=== PATIENT | female | born 1975 | race Caucasian/White ===

== ENCOUNTER 2016-11-09 11:44 | Emergency (ER) | payer MEDICARE ==
[2016-11-09] MEDS ORDERED: IPRATROPIUM/ALBUTEROL 0.5-2.5 MG/3 ML AMPUL NEB ONE (12:33)
--- NOTE | 2016-11-09 12:39 | ER Document Report ---
ED Respiratory Problem - General Chief Complaint: Chest Congestion Stated Complaint: COUGH Time Seen by Provider: 11/09/16 12:22 Mode of Arrival: Ambulatory Information source: Patient Notes: 41-year-old female presents to ED for cough congestion fever and body aches on and off. She states she has had a headache hard to breathe and panic attacks. She has a history of chronic cough. She states she had a temperature of 101.7 this morning but did not take any Tylenol or Motrin as she is allergic to them and in the ED her temp was 98.9. She states she [facility] got [facility] yesterday. She states she has had a history of bronchitis and pneumonia. TRAVEL OUTSIDE OF THE [place] IN LAST 30 DAYS: No - HPI Patient complains to provider of: Cough, Short of breath Onset: Other - Started Thursday evening Initiating Event: URI Quality of pain: Achy Severity: Moderate Pain Level: 3 Context: Smoker - 4 cigarettes Short of Breath: Mild Cough: Nonproductive Sputum amount: None Associated symptoms: Congestion, Cough, Fever, PND, Runny nose, Sinus pain/ pressure, Sore Throat Similar symptoms previously: Yes Recently seen / treated by doctor: No - Related Data Allergies/Adverse Reactions: aspirin [Aspirin] Allergy (Verified 11/09/16 12:08) codeine [Codeine] Allergy (Verified 11/09/16 12:08) NSAIDS (Non-Steroidal Anti-Inflamma [Nsaids] Allergy (Verified 11/09/16 12:08) Penicillins Allergy (Verified 11/09/16 12:08) Past Medical History - General Information source: Patient - Social History Smoking Status: Current Every Day Smoker Cigarette use (# per day): Yes - 4 cigarettes a day Chew tobacco use (# tins/day): No Smoking Education Provided: Yes - Less than 2 minutes Frequency of alcohol use: None Drug Abuse: None Occupation: Disability Lives with: Family Family History: COPD, Hyperlipidemia, Hypertension, Malignancy, Thyroid Disfunction Patient has suicidal ideation: No Patient has homicidal ideation: No Pulmonary Medical History: Reports: Hx Bronchitis, Hx Pneumonia EENT Medical History: Reports: None Neurological Medical History: Reports: None Endocrine Medical History: Reports: None Renal/ Medical History: Reports: None Malignancy Medical History: Reports: None GI Medical History: Reports: Hx Gastroesophageal Reflux Disease, Hx Irritable Bowel, Hx Colonoscopy, Hx Endoscopy Musculoskeltal Medical History: Reports Hx Arthritis, Reports Hx Fibromyalgia, Reports Hx Musculoskeletal Deformity Skin Medical History: Reports None Psychiatric Medical History: Reports: Hx Anxiety, Hx Attention Deficit Hyperactivity Disorder, Hx Bipolar Disorder Past Surgical History: Reports: Hx Neurologic Surgery - Plates and 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- 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, Hx Tubal Ligation - Immunizations Immunizations up to date: Yes Review of Systems - Review of Systems Constitutional: Fever, Recent illness EENT: Nose discharge, Sinus discharge, Throat pain Cardiovascular: No symptoms reported Respiratory: Cough Gastrointestinal: No symptoms reported Genitourinary: No symptoms reported Female Genitourinary: No symptoms reported Musculoskeletal: No symptoms reported Skin: No symptoms reported Hematologic/Lymphatic: No symptoms reported Neurological/Psychological: Anxiety, Headaches -: Yes All other systems reviewed and negative Physical Exam - Vital signs Vitals: Temp Pulse Resp BP Pulse Ox 98.9 F 89 16 110/74 93 11/09/16 12:04 11/09/16 12:04 11/09/16 12:04 11/09/16 12:04 11/09/16 12:04 Interpretation: Normal - General General appearance: Appears well, Alert - HEENT Head: Normocephalic, Atraumatic Eyes: Normal Pupils: PERRL Ears: Normal External canal: Normal Tympanic membrane: Normal Sinus: Normal Nasal: Purulent discharge, Swelling Mouth/Lips: Normal, Lesions Pharynx: Post nasal drainage. No: Erythema, Exudate, Peritonsillar abscess, Retropharyngeal abscess, Tonsillar hypertrophy, Uvular edema, Potential airway comprom. Neck: Normal - Respiratory Respiratory status: No respiratory distress Chest status: Nontender Breath sounds: Nonproductive cough Chest palpation: Normal - Cardiovascular Rhythm: Regular Heart sounds: Normal auscultation Murmur: No - Abdominal Inspection: Normal Distension: No distension Bowel sounds: Normal Tenderness: Nontender Organomegaly: No organomegaly - Back Back: Normal, Nontender - Extremities General upper extremity: Normal inspection, Nontender, Normal color, Normal ROM , Normal temperature General lower extremity: Normal inspection, Nontender, Normal color, Normal ROM , Normal temperature, Normal weight bearing. No: Tressa's sign - Neurological Neuro grossly intact: Yes Cognition: Normal Orientation: AAOx4 Micky Coma Scale Eye Opening: Spontaneous Micky Coma Scale Verbal: Oriented [place] Coma Scale Motor: Obeys Commands [place] Coma Scale Total: 15 Speech: Normal Cranial nerves: Normal Cerebellar coordination: Normal Motor strength normal: LUE, RUE, LLE, RLE Additional motor exam normals: Equal interactive media director Babinski reflex: Normal (flexor plantar) Sensory: Normal - Psychological Associated symptoms: Normal affect, Normal mood - Skin Skin Temperature: Warm Skin Moisture: Dry Skin Color: Normal Course - Re-evaluation Re-evalutation: 11/09/16 14:17 Discussed date x-ray with patient and family. Written report given to patient to follow-up with her primary doctor. Her signs and symptoms are consistent with the upper respiratory infection. Chest x-ray was negative. Patient states that the nebulizers did not make her feel any better but she is now speaking much easier with no cough. - Vital Signs Vital signs: Temp Pulse Resp BP Pulse Ox 98.8 F 90 21 H 112/77 95 11/09/16 14:21 11/09/16 14:21 11/09/16 14:21 11/09/16 14:21 11/09/16 14:21 - Diagnostic Test Radiology reviewed: Image reviewed, Reports reviewed Discharge - Discharge Clinical Impression: URI (upper respiratory infection) Qualifiers: URI type: unspecified URI Qualified Code(s): J06.9 - Acute upper respiratory infection, unspecified Condition: Stable Disposition: HOME, SELF-CARE Instructions: Family Physicians / Practices Additional Instructions: UPPER RESPIRATORY ILLNESS: You have a viral infection of the respiratory passages -- a "cold." This common infection causes nasal congestion, drainage, and often sore throat and cough. It is highly contagious. The disease usually lasts about 10 to 14 days. There is no "cure" for the viral infection -- it must run its course. If there is a complication, such as bacterial infection in the nose, sinuses, middle ear, or bronchial tubes, antibiotics may be required. The antibiotics won't affect the virus. Drink plenty of fluids. A humidifier may help. An expectorant medication or decongestant may make you more comfortable. Use acetaminophen or ibuprofen for fever or aches. See the doctor if fever persists over two days, if there is any significant worsening of your symptoms, or if you simply fail to improve as expected. BRONCHOSPASM: You have tightness in the bronchial tubes, called bronchospasm. This often occurs with bronchial infections. Allergies, inhaled chemicals, and polluted or cold air can also provoke bronchospasm. It's more likely in patients with asthma in the family. Emergency treatment of bronchospasm may include adrenaline shots or bronchodilator aerosol. You may feel lightheaded and have a rapid pulse for an hour or two. Rest and get plenty of fluids. At home, we'll treat you with a bronchodilator inhaler. Antibiotics and corticosteroids may be required for some patients. Until you recover, avoid chemical fumes, dusts, pollens, and exercising in very cold or dry air. If you smoke, stop now!! If you develop a fever, increased wheezing, chest pain, or severe shortness of breath, you should contact the doctor immediately. COUGH-SUPPRESSANT & EXPECTORANT MEDICATION: You are to use a cough medication as needed for relief of symptoms. This medicine is a combination of an expectorant (to make the mucous thinner and more easily "coughed up") and a cough suppressant (to reduce the frequency of coughing). The cough-suppressant medicine is related to narcotics. You may experience mild nausea and sleepiness. Some patients who are very sensitive to narcotics may have stomach pain from this medicine. Taking the medicine with food reduces these side effects. Do not drive or work with machinery until you know how this medicine affects you. The expectorant should have no side effects. Iodine-containing expectorants (such as organidin) should not be taken by persons with active thyroid disease unless approved by your doctor. Call the doctor if you develop shortness of breath, hives, rash, itching, lightheadedness, or severe nausea and vomiting. INHALED BRONCHODILATORS: You have received a treatment of and/or prescription for an inhaled bronchodilator -- a medication which stimulates the airways in the lung to dilate. This improves the flow of air in asthma, bronchitis, and emphysema. These medicines have some similarity to adrenaline, and can cause similar side effects: shakiness, racing heart, and a sense of nervousness. These side effects decrease with time. Contact your doctor if these side effects are severe. Do not over-use the medicine. Too-frequent use of the inhaler may make it ineffective. Call your doctor if the inhaler is not controlling your symptoms at the prescribed doses. USE OF ACETAMINOPHEN (Tylenol): Acetaminophen may be taken for pain relief or fever control. It's much safer than aspirin, offering a wider range of "safe" dosages. It is safe during . Some brand names are Tylenol, Panadol, Datril, Anacin 3, Tempra, and Liquiprin. Acetaminophen can be repeated every four hours. The following are maximum recommended dosages: >89 pounds or adults 650 mg to 900 mg Acetaminophen can be repeated every four hours. Maximum dose not to exceed 4000 mg a day. SMOKING: If you smoke, you should stop smoking. The tar and chemicals in cigarette smoke are harmful. Smoking has been shown to cause: emphysema chronic bronchitis lung cancer mouth and throat cancer stomach and pancreas cancer premature aging defects In addition, smoking increases ear and lung infections in children of smokers. FOLLOW-UP CARE: If you have been referred to a physician for follow-up care, call the physician s office for an appointment as you were instructed or within the next two days. If you experience worsening or a significant change in your symptoms, notify the physician immediately or return to the Emergency Department at any time for re-evaluation. Forms: Smoking Cessation Education, Return to Work
[2016-11-09] MEDS ORDERED: ALBUTEROL SULFATE 0.083% NEB 2.5 MG/3 ML AMPUL NEB SCH (12:45)
--- NOTE | 2016-11-09 13:57 | RADIOLOGY REPORT (SQ) ---
EXAM DESCRIPTION: CHEST PA/LAT COMPLETED DATE/TIME: 11/09/2016 1:04 pm REASON FOR STUDY: cough congestion COMPARISON: None. EXAM PARAMETERS: NUMBER OF VIEWS: two views TECHNIQUE: Digital Frontal and Lateral radiographic views of the chest acquired. RADIATION DOSE: NA LIMITATIONS: none FINDINGS: LUNGS AND PLEURA: No opacities, masses or pneumothorax. No pleural effusion. MEDIASTINUM AND HILAR STRUCTURES: No masses or contour abnormalities. HEART AND VASCULAR STRUCTURES: Heart normal size. No evidence for failure. BONES: No acute findings. HARDWARE: None in the chest. OTHER: No other significant finding. IMPRESSION: NO SIGNIFICANT RADIOGRAPHIC FINDING IN THE CHEST. TECHNICAL DOCUMENTATION: JOB ID: [id number] [employer]- All Rights Reserved
[2016-11-09 14:22] VITALS: BP 112/77
== END 2016-11-09 14:23 | disposition home or self-care (01) ==
LOC: ER 11:44
DX: J06.9 Acute upper respiratory infection, unspecified (principal); R09.89 Other specified symptoms and signs involving the circulatory and respiratory systems; R05 Cough; R50.9 Fever, unspecified; M79.1 Myalgia; R06.02 Shortness of breath; F17.210 Nicotine dependence, cigarettes, uncomplicated
CPT/HCPCS: 94640 ×2; 99283; 71020; A9270 ×2; J7620

== ENCOUNTER 2018-05-25 16:04 | Inpatient (IN) | payer MEDICARE ==
[2018-05-25] MEDS ORDERED: NORMAL SALINE 1000 ML 1,000 ML IV ONE (17:21)
[2018-05-25] MEDS ORDERED: ACETAMINOPHEN 325 MG TABLET PO ONE (17:21)
--- NOTE | 2018-05-25 17:28 | ER Document Report ---
ED Medical Screen (RME) - General Chief Complaint: Fever Stated Complaint: FEVER Time Seen by Provider: 05/25/18 17:14 Mode of Arrival: Ambulatory Information source: Patient TRAVEL OUTSIDE OF THE [place] IN LAST 30 DAYS: No - HPI Patient complains to provider of: flank pain, fever, vomiting Notes: 05/25/18 17:25 Patient is here with complaints of flank pain, fever, vomiting. The patient states that she thought she had a urinary tract infection over a week ago. She is taken [id number] Azo. She was seen by her primary care doctor 2 days ago and was started on Keflex. She was feeling worse and she went to her family doctor yesterday they did blood work on her. Last evening she started running fevers and started developing some nausea vomiting. She seems to be getting worse and was told to come to the emergency department. She had a CT of the abdomen and pelvis with IV contrast that was ordered by her primary care doctor. She is now complaining of bilateral flank pain, nausea vomiting, fever. No chest pain or shortness of breath. Exam Nontoxic, no distress. Mild tachycardia. Bilateral CVA tenderness. Frequent cough. Plan CBC, CMP, blood cultures, lactate, urine, urine culture, chest x-ray, CT abdomen pelvis with IV contrast as ordered by her primary care doctor, saline lock, 1 L of normal saline, Tylenol. Patient was noted to be tachycardic and in triage, not tachypneic or febrile, no obvious sepsis at this time. An initial examination was made on the patient as part of the triage process, and it was determined a more comprehensive evaluation was necessary. Initial labs were ordered and patient was transferred to another provider in the ED who assumed care and finished evaluation and plan. - Related Data Allergies/Adverse Reactions: aspirin [Aspirin] Allergy (Verified 05/25/18 16:05) codeine [Codeine] Allergy (Verified 05/25/18 16:05) hydrocodone Allergy (Verified 05/25/18 17:12) NSAIDS (Non-Steroidal Anti-Inflamma [Nsaids] Allergy (Verified 05/25/18 16:05) Penicillins Allergy (Verified 05/25/18 16:05) Past Medical History - Social History Frequency of alcohol use: None Drug Abuse: None Pulmonary Medical History: Reports: Hx Bronchitis, Hx Pneumonia Renal/ Medical History: Denies: Hx Peritoneal Dialysis GI Medical History: Reports: Hx Gastroesophageal Reflux Disease, Hx Irritable Bowel, Hx Colonoscopy, Hx Endoscopy Musculoskeltal Medical History: Reports Hx Arthritis, Reports Hx Fibromyalgia, Reports Hx Musculoskeletal Deformity Psychiatric Medical History: Reports: Hx Anxiety, Hx Attention Deficit Hyperactivity Disorder, Hx Bipolar Disorder Past Surgical History: Reports: Hx Neurologic Surgery - Plates and 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
[2018-05-25] MEDS ORDERED: ONDANSETRON HCL INJ/PF 4 MG/2 ML SDV IV ONE (18:01)
[2018-05-25] MEDS ORDERED: MORPHINE SULFATE 10 MG/ML INJ IV ONE (18:01)
--- NOTE | 2018-05-25 18:31 | RADIOLOGY REPORT (SQ) ---
EXAM DESCRIPTION: CHEST SINGLE VIEW COMPLETED DATE/TIME: 05/25/2018 6:23 pm REASON FOR STUDY: flank pain, fever COMPARISON: 11/09/2016 EXAM PARAMETERS: NUMBER OF VIEWS: One view. TECHNIQUE: Single frontal radiographic view of the chest acquired. RADIATION DOSE: NA LIMITATIONS: None. FINDINGS: LUNGS AND PLEURA: No opacities, masses or pneumothorax. No pleural effusion. MEDIASTINUM AND HILAR STRUCTURES: No masses. Contour normal. HEART AND VASCULAR STRUCTURES: Heart normal in size. Normal vasculature. BONES: No acute findings. HARDWARE: None in the chest. OTHER: No other significant finding. IMPRESSION: NO ACUTE RADIOGRAPHIC FINDING IN THE CHEST. TECHNICAL DOCUMENTATION: JOB ID: [id number] [employer]- All Rights Reserved Reading location - IP/workstation name: [email or web address]
[2018-05-25 18:39] LABS: APPEARANCE,URINE CLOUDY; BILIRUBIN,URINE NEGATIVE (NEGATIVE); COLOR,URINE AMBER; GLUCOSE, URINE NEGATIVE (NEGATIVE); KETONES,URINE NEGATIVE (NEGATIVE); LEUKOCYTE ESTERASE,URINE SMALL (NEGATIVE); NITRITE,URINE NEGATIVE (NEGATIVE); PROTEIN,URINE 30 mg/dL (NEGATIVE); URINE SPECIFIC GRAVITY 1.015
[2018-05-25 18:43] LABS: HEMATOCRIT 37.3 % (36.0-47.0); HEMOGLOBIN 12.9 g/dL (12.0-15.5); MEAN CORPUSCULAR HEMOGLOBIN 31.4 pg (27.0-33.4); MEAN CORPUSCULAR HGB CONC 34.5 g/dL (32.0-36.0); MEAN CORPUSCULAR VOLUME 91 fl (80-97); PLATELET COUNT 486 10^3/uL (150-450); WHITE BLOOD COUNT 28.4 10^3/uL (4.0-10.5)
[2018-05-25 18:55] LABS: ALANINE AMINOTRANSFERASE 50 U/L (9-52); ALBUMIN 4.1 g/dL (3.5-5.0); ALKALINE PHOSPHATASE 212 U/L (38-126); ANION GAP 15 (5-19); ASPARTATE AMINO TRANSFERASE 27 U/L (14-36); BILIRUBIN,DIRECT 0.8 mg/dL (0.0-0.4); BILIRUBIN,TOTAL 1.4 mg/dL (0.2-1.3); BLOOD UREA NITROGEN 11 mg/dL (7-20); CALCIUM 9.9 mg/dL (8.4-10.2); CARBON DIOXIDE 27 mmol/L (22-30); CHLORIDE 93 mmol/L (98-107); GLUCOSE 96 mg/dL (75-110); LIPASE 19.2 U/L (23-300); SODIUM 135.2 mmol/L (137-145); TOTAL PROTEIN 7.2 g/dL (6.3-8.2)
[2018-05-25 19:01] LABS: ABSOLUTE LYMPHOCYTES# (MANUAL) 4.8 10^3/uL (0.5-4.7); ABSOLUTE MONOCYTES # (MANUAL) 2.3 10^3/uL (0.1-1.4); BAND NEUTROPHILS % (MANUAL) 1 % (3-5); BASOPHILS % (MANUAL) 0 % (0-2); EOSINOPHILS % (MANUAL) 1 % (0-6); LYMPHOCYTES % (MANUAL) 13 % (13-45); MONOCYTES % (MANUAL) 8 % (3-13); SEGMENTED NEUTROPHILS % (MAN) 73 % (42-78); TOTAL CELLS COUNTED 100
[2018-05-25 19:02] LABS: PLATELET COMMENT INCREASED; RBC MORPHOLOGY COMMENT NORMO-CYTIC/CHROMIC
[2018-05-25 19:03] LABS: TOXIC GRANULATION 1+
[2018-05-25] MEDS: RINGERS SOLUTION,LACTATED 1,000 ML IV PRN ×3 (19:17→23:47)
[2018-05-25] MEDS ORDERED: CIPROFLOXACIN 400 MG/D5W RTU 400 MG/200 ML RTUPB IV ONE (19:17)
[2018-05-25] MEDS ORDERED: FENTANYL CITRATE INJ/PF 100 MCG/2 ML AMPUL IV ONE (19:22)
--- NOTE | 2018-05-25 20:23 | RADIOLOGY REPORT (SQ) ---
EXAM DESCRIPTION: CT ABDOMEN PELVIS WITHOUT IV CONTRAST COMPLETED DATE/TME: 05/25/2018 19:16 CLINICAL HISTORY: 42 years Female flank pain, hematuria COMPARISON: None. TECHNIQUE: Contiguous axial images obtained through the abdomen and pelvis without IV contrast. Reformatted images obtained. This exam was performed according to our department optimization program which includes automated exposure control, adjustment of the mA and/or kv according to patient size and/or use of iterative reconstruction technique. FINDINGS: The lung bases are clear. The liver appears unremarkable. The spleen and pancreas appear unremarkable. No adrenal masses. There is perinephric stranding bilaterally worse on the right. Findings are concerning for pyelonephritis. No hydronephrosis or obstructive uropathy. The gallbladder is visualized. No aneurysmal dilatation of the aorta. No bowel obstruction. The appendix is unremarkable. Low-attenuation focus along the anterior margin of the uterus likely a small fibroid. No free pelvic fluid. IMPRESSION: Perinephric stranding bilaterally right greater than left concerning for pyelonephritis. No evidence of nephrolithiasis or hydronephrosis Small uterine fibroid
[2018-05-25] MEDS ORDERED: DOXYCYCLINE HYCLATE INJ 100 MG VIAL IV ONE (21:48)
--- NOTE | 2018-05-25 21:55 | ER Document Report ---
ED General - General Chief Complaint: Fever Stated Complaint: FEVER Time Seen by Provider: 05/25/18 17:14 Mode of Arrival: Ambulatory Notes: Patient is a 42-year-old female that presents to the emergency department for chief complaint of bilateral flank pain, worse on the left compared to the right, dysuria, and fever. Patient states that she is been having UTI symptoms for about 5 days, and was taking Azo without improvement, she went to her primary care and was started on Keflex, which she has taken a total of 3 doses she was seen by her primary care on Thursday. Today she is been having fever and vomiting, and now pain in her bilateral flanks is noted worse in the left compared to the right she currently rates the pain as a 6 out of 10, describes as a constant aching sensation. Denies any associated chest pain, lightheadedness, dizziness, shortness of breath, diarrhea, vaginal bleeding or discharge. Past Medical History: Osteopenia, fibromyalgia, bipolar disorder Past Surgical History: Liver biopsy, breast biopsy Social History: Admits to smoking cigarettes, denies alcohol or drug use. Family History: Reviewed and noncontributory for presenting illness Allergies: Reviewed, see documented allergy list. REVIEW OF SYSTEMS: Other than noted above, the 12 point review of systems was reviewed with the patient and were negative, all pertinent findings are included in the HPI. PHYSICAL EXAMINATION: Vital signs reviewed, nursing noted reviewed. GENERAL: Patient appears uncomfortable, and ill-appearing as well. HEAD: Atraumatic, normocephalic. EYES: Eyes appear normal, extraocular movements intact, sclera anicteric, conjunctiva are normal. ENT: nares patent, oropharynx clear without exudates. Moist mucous membranes. NECK: Normal range of motion, supple without lymphadenopathy LUNGS: Breath sounds clear to auscultation bilaterally and equal. No wheezes rales or rhonchi. HEART: Heart rate tachycardic, regular rhythm ABDOMEN: Soft, bilateral CVA tenderness, worse on the left compared to the right., normoactive bowel sounds. No rebound, guarding, or rigidity. No masses appreciated. EXTREMITIES: Nontender, good range of motion, no pitting or edema. NEUROLOGICAL: No focal neurological deficits. Moves all extremities spontaneously Motor and sensory grossly intact on exam. PSYCH: Normal mood, normal affect. SKIN: Warm, Dry, normal turgor, no rashes or lesions noted on exposed skin TRAVEL OUTSIDE OF THE [place] IN LAST 30 DAYS: No - Related Data Allergies/Adverse Reactions: acetaminophen Allergy (Verified 05/25/18 18:37) aspirin [Aspirin] Allergy (Verified 05/25/18 16:05) codeine [Codeine] Allergy (Verified 05/25/18 16:05) hydrocodone Allergy (Verified 05/25/18 17:12) NSAIDS (Non-Steroidal Anti-Inflamma [Nsaids] Allergy (Verified 05/25/18 16:05) Penicillins Allergy (Verified 05/25/18 16:05) Past Medical History - General Information source: Patient - Social History Smoking Status: Current Every Day Smoker Frequency of alcohol use: None Drug Abuse: None Family History: COPD, Hyperlipidemia, Hypertension, Malignancy, Thyroid Disfunction Patient has suicidal ideation: No Patient has homicidal ideation: No Pulmonary Medical History: Reports: Hx Bronchitis, Hx Pneumonia Renal/ Medical History: Denies: Hx Peritoneal Dialysis GI Medical History: Reports: Hx Gastroesophageal Reflux Disease, Hx Irritable Bowel, Hx Colonoscopy, Hx Endoscopy Musculoskeletal Medical History: Reports Hx Arthritis, Reports Hx Fibromyalgia, Reports Hx Musculoskeletal Deformity Psychiatric Medical History: Reports: Hx Anxiety, Hx Attention Deficit Hyperactivity Disorder, Hx Bipolar Disorder Past Surgical History: Reports: Hx Neurologic Surgery - Plates and 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- 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, Hx Tubal Ligation - Immunizations Immunizations up to date: Yes Physical Exam - Vital signs Vitals: Temp Pulse Resp BP Pulse Ox 99.4 F 117 H 18 108/64 95 05/25/18 16:37 05/25/18 16:37 05/25/18 16:37 05/25/18 16:37 05/25/18 16:37 Course - Re-evaluation Re-evalutation: Patient seen and examined vital signs reviewed. Laboratory data and imaging were ordered as appropriate for the patient's presenting symptoms and complaint, with consideration of any critical or life threatening conditions that may be associated with their obtained history and exam as noted above. Patient was treated with IV fluid resuscitation, fentanyl for pain, Zofran for nausea. Results were reviewed when available and demonstrated significant leukocytosis, UA consistent with urinary tract infection, with hematuria, CT imaging of the abdomen and pelvis without contrast was pursued to evaluate for possible stone, which was negative for this, but did demonstrate concern for bilateral pyelonephritis, which did fit this patient's clinical picture. The patient was febrile, however she is allergic to NSAIDs and acetaminophen. She was given a dose of IV ciprofloxacin, given penicillin allergy, however she started to have rash and redness at the IV site, this was discontinued and this improved. She did not have any wheezing or shortness of breath or hypertension. As a result she was given a dose of IV doxycycline. The patient was re-evaluated and was improved Evaluation was most consistent with acute pyelonephritis, with severe sepsis, she had a lactate of 3.0, patient was aggressively fluid resuscitated. Results were discussed with the patient at this point after careful consideration I feel that that patient should be admitted to the hospital. This was discussed with the patient that it is in the best interest for their care to be admitted for further evaluation and management. Patient agreed with this plan of care. A call was placed to the admitted physician, Dr. Dickinson who graciously accepted the patient onto their service. *Note is created using voice recognition software and may contain spelling, syntax or grammatical errors. Laboratory 05/25/18 05/25/18 05/25/18 17:58 17:58 17:58 WBC 28.4 H RBC 4.10 Hgb 12.9 Hct 37.3 MCV 91 MCH 31.4 MCHC 34.5 RDW 13.0 Plt Count 486 H Total Counted 100 Seg Neutrophils % Not Reportable Seg Neuts % (Manual) 73 Band Neutrophils % 1 L Lymphocytes % Not Reportable Lymphocytes % (Manual) 13 Atypical Lymphs % 4 Monocytes % Not Reportable Monocytes % (Manual) 8 Eosinophils % Not Reportable Eosinophils % (Manual) 1 Basophils % Not Reportable Basophils % (Manual) 0 Absolute Neutrophils Not Reportable Abs Neuts (Manual) 21.0 H Absolute Lymphocytes Not Reportable Abs Lymphs (Manual) 4.8 H Absolute Monocytes Not Reportable Abs Monocytes (Manual) 2.3 H Absolute Eosinophils Not Reportable Absolute Eos (Manual) 0.3 Absolute Basophils Not Reportable Abs Basophils (Manual) 0.0 Toxic Granulation 1+ Platelet Comment INCREASED RBC Morph Comment NORMO-CYTIC/CHROMIC Sodium 135.2 L Potassium 4.0 Chloride 93 L Carbon Dioxide 27 Anion Gap 15 BUN 11 Creatinine 0.83 Est GFR ( Amer) > 60 Est GFR (Non-Af Amer) > 60 Glucose 96 Lactic Acid Cancelled Calcium 9.9 Total Bilirubin 1.4 H Direct Bilirubin 0.8 H Neonat Total Bilirubin Not Reportable Neonat Direct Bilirubin Not Reportable Neonat Indirect Bili Not Reportable AST 27 ALT 50 Alkaline Phosphatase 212 H Total Protein 7.2 Albumin 4.1 Lipase 19.2 L Urine Color Urine Appearance Urine pH Ur Specific [place] Urine Protein Urine Glucose (UA) Urine Ketones Urine Blood Urine Nitrite Urine Bilirubin Urine Urobilinogen Ur Leukocyte Esterase Urine WBC (Auto) Urine RBC (Auto) Urine Bacteria (Auto) Squamous Epi Cells Auto Urine Mucus (Auto) Urine Ascorbic Acid 05/25/18 05/25/18 17:58 17:58 WBC RBC Hgb Hct MCV MCH MCHC RDW Plt Count Total Counted Seg Neutrophils % Seg Neuts % (Manual) Band Neutrophils % Lymphocytes % Lymphocytes % (Manual) Atypical Lymphs % Monocytes % Monocytes % (Manual) Eosinophils % Eosinophils % (Manual) Basophils % Basophils % (Manual) Absolute Neutrophils Abs Neuts (Manual) Absolute Lymphocytes Abs Lymphs (Manual) Absolute Monocytes Abs Monocytes (Manual) Absolute Eosinophils Absolute Eos (Manual) Absolute Basophils Abs Basophils (Manual) Toxic Granulation Platelet Comment RBC Morph Comment Sodium Potassium Chloride Carbon Dioxide Anion Gap BUN Creatinine Est GFR ( Amer) Est GFR (Non-Af Amer) Glucose Lactic Acid 3.0 H Calcium Total Bilirubin Direct Bilirubin Neonat Total Bilirubin Neonat Direct Bilirubin Neonat Indirect Bili AST ALT Alkaline Phosphatase Total Protein Albumin Lipase Urine Color KARON Urine Appearance CLOUDY Urine pH 5.0 Ur Specific [place] 1.015 Urine Protein 30 H Urine Glucose (UA) NEGATIVE Urine Ketones NEGATIVE Urine Blood LARGE H Urine Nitrite NEGATIVE Urine Bilirubin NEGATIVE Urine Urobilinogen 2.0 H Ur Leukocyte Esterase SMALL H Urine WBC (Auto) 23 Urine RBC (Auto) 41 Urine Bacteria (Auto) TRACE Squamous Epi Cells Auto 6 Urine Mucus (Auto) FEW Urine Ascorbic Acid NEGATIVE Chest X-Ray 05/25/18 17:20 IMPRESSION: NO ACUTE RADIOGRAPHIC FINDING IN THE CHEST. Abdomen/Pelvis CT 05/25/18 19:16 IMPRESSION: Perinephric stranding bilaterally right greater than left concerning for pyelonephritis. No evidence of nephrolithiasis or hydronephrosis Small uterine fibroid - Vital Signs Vital signs: Temp Pulse Resp BP Pulse Ox 102.1 F H 117 H 26 H 110/60 96 05/25/18 20:51 05/25/18 16:37 05/25/18 22:01 05/25/18 22:00 05/25/18 22:01 - Laboratory Result Diagrams: 05/25/18 17:58 05/25/18 17:58 Laboratory results interpreted by me: 05/25/18 05/25/18 05/25/18 17:58 17:58 17:58 WBC 28.4 H Plt Count 486 H Band Neutrophils % 1 L Abs Neuts (Manual) 21.0 H Abs Lymphs (Manual) 4.8 H Abs Monocytes (Manual) 2.3 H Sodium 135.2 L Chloride 93 L Lactic Acid Total Bilirubin 1.4 H Direct Bilirubin 0.8 H Alkaline Phosphatase 212 H Lipase 19.2 L Urine Protein 30 H Urine Blood LARGE H Urine Urobilinogen 2.0 H Ur Leukocyte Esterase SMALL H 05/25/18 17:58 WBC Plt Count Band Neutrophils % Abs Neuts (Manual) Abs Lymphs (Manual) Abs Monocytes (Manual) Sodium Chloride Lactic Acid 3.0 H Total Bilirubin Direct Bilirubin Alkaline Phosphatase Lipase Urine Protein Urine Blood Urine Urobilinogen Ur Leukocyte Esterase Critical Care Note - Critical Care Note Total time excluding time spent on procedures (mins): 37 Comments: Critical care time 37 minutes exclusive from separate billable procedures for a patient requiring complex medical decision making, and high potential for clinical deterioration. In a patient with severe sepsis, requiring aggressive fluid resuscitation, frequent re-evaluations and admission to the hospital. Time spent obtaining history from patient or surrogate, discussions with consultants, development of treatment plan with patient or surrogate, evaluation of patient's response to treatment, examination of patient, ordering and performing treatments and interventions, ordering and review of laboratory studies, re-evaluation of patient's condition, ordering and review of radiographic studies and review of old charts Discharge - Discharge Clinical Impression: Pyelonephritis, Severe sepsis, Thrombocytosis Leukocytosis Qualifiers: Leukocytosis type: unspecified Qualified Code(s): D72.829 - Elevated white blood cell count, unspecified Condition: Serious Disposition: ADMITTED INPATIENT Admitting Provider: Teena (Hospitalist) Unit Admitted: Telemetry
[2018-05-25] MEDS ORDERED: MAG HYDROX/AL HYDROX/SIMETH SUSP 30 ML UDCUP PO PRN (22:28)
[2018-05-25] MEDS ORDERED: MAGNESIUM HYDROXIDE SUSP 30 ML UDCUP PO PRN (22:28)
[2018-05-25] MEDS ORDERED: TEMAZEPAM 15 MG CAPSULE PO PRN (22:28)
[2018-05-25] MEDS ORDERED: NALBUPHINE HCL INJ 10 MG/1 ML AMPULE IV PRN (22:32)
[2018-05-25] MEDS ORDERED: NICOTINE 21 MG/24 HR PATCH.TD24 TD PRN (22:32)
[2018-05-25] MEDS ORDERED: MEROPENEM 1 GM VIAL IV SCH (22:45)
[2018-05-25] MEDS ORDERED: FAMOTIDINE 20 MG TABLET PO ONE (23:00)
[2018-05-25] MEDS: MORPHINE SULFATE 10 MG/ML INJ IV PRN (23:26)
[2018-05-26] MEDS: ONDANSETRON HCL INJ/PF 4 MG/2 ML SDV IV PRN ×2 (01:00→05:15)
[2018-05-26] MEDS: MORPHINE SULFATE 10 MG/ML INJ IV PRN ×6 (01:32→21:44)
--- NOTE | 2018-05-26 02:41 | PDOC H&P ---
History of Present Illness Admission Date/PCP: 05/25/18 22:03 Patient complains of: Bilateral flank pain History of Present Illness: TATI SCHAEFER is a 42 year old female who presented to the emergency room with a 10-day history of a progressively worsening urinary tract infection. She admits that she developed urinary symptoms of difficulty initiating the urinary stream, post voiding dysuria and bilateral lower back/flank pain approximately 10 days ago and began taking Azo [id number] until she could be seen by her primary care provider. She saw her doctor 2 days prior to admission and was started on Keflex but with this she not only did not improve but had worsening of her symptoms. Blood work was obtained by her primary care provider yesterday morning and in the evening she noted the onset of fever and nausea with vomiting. After contacting her primary care provider again today she was instructed to come to the emergency room for evaluation. She admits that she has severe pain in both of her flanks as well as moderate to severe nausea with vomiting and a severe fever to 103.8 F. She admits prior similar episodes, but none this severe. She has not identified any aggravating or ameliorating factors for her urinary tract infection symptoms. In the emergency room she was found to have a CT of abdomen pelvis which demonstrated bilateral pyelonephritis and she was also noted to have a significantly elevated white blood count and an elevated serum lactic acid. She was subsequently admitted to the hospital for further evaluation and treatment. Past Medical History Cardiac Medical History: Denies: Atrial Fibrillation, Coronary Artery Disease, DVT, Myocardial Infarction, Hypertension, Pulmonary Embolism Pulmonary Medical History: Reports: Bronchitis, Pneumonia Denies: Asthma, Chronic Obstructive Pulmonary Disease (COPD) EENT Medical History: Denies: Cataracts Neurological Medical History: Denies: Hemorrhagic CVA, Ischemic CVA, Seizures Endocrine Medical History: Denies: Diabetes Mellitus Type 1, Diabetes Mellitus Type 2, Hyperthyroidism, Hypothyroidism Renal/ Medical History: Denies: Chronic Kidney Disease, Nephrolithiasis Malignancy Medical History: Reports: None GI Medical History: Reports: Gastroesophageal Reflux Disease Denies: Cirrhosis, Hepatitis Musculoskeltal Medical History: Reports: Arthritis, Fibromyalgia Skin Medical History: Reports: Eczema, Psoriasis Psychiatric Medical History: Reports: Attention Deficit Hyperactivity Disorder, Bipolar Disorder, Tobacco Dependency Denies: Alcohol Dependency, Substance Abuse Traumatic Medical History: Reports: None Hematology: Denies: Anemia, Bleeding Tendencies Infectious Medical History: Reports: None Past Surgical History Past Surgical History: Reports: Orthopedic Surgery - C1-C2 fusion, compound fracture, Tubal Ligation, Other - 5 colonoscopies, one EGD, bilateral breast biopsies, liver biopsy Social History Information Source: Patient Lives with: Family, Spouse/Significant other Smoking Status: Current Every Day Smoker Frequency of Alcohol Use: None Hx Recreational Drug Use: No Drugs: None Hx Prescription Drug Abuse: No - Advance Directive Surrogate healthcare decision maker:: Spouse Family History Family History: COPD, Hyperlipidemia, Hypertension, Malignancy, Thyroid Disfunction Parental Family History Reviewed: Yes Children Family History Reviewed: No Sibling(s) Family History Reviewed.: Yes Medication/Allergy Home Medications: Clonazepam [Klonopin 1 mg Tablet] 1 mg PO TID 01/08/15 Dextroamphetamine/Amphetamine [Adderall 20 mg Tablet] 20 mg PO TID 01/08/15 Lamotrigine [Lamictal] 50 mg PO DAILY 01/08/15 Ondansetron [Zofran Odt 4 mg Tablet] 1 - 2 tab PO Q4H PRN #15 tab.rapdis 01/08/15 Trazodone HCl 100 mg PO DAILY 01/08/15 Nitrofurantoin/Nitrofuran Mac [Macrobid 100 mg Capsule] 1 tab PO BID #20 capsule 07/12/15 Oxycodone HCl/Acetaminophen [Percocet 5-325 mg Tablet] 1 - 2 tab PO Q4H PRN #15 tablet 07/12/15 Allergies/Adverse Reactions: acetaminophen Allergy (Verified 05/25/18 18:37) aspirin [Aspirin] Allergy (Verified 05/25/18 16:05) codeine [Codeine] Allergy (Verified 05/25/18 16:05) hydrocodone Allergy (Verified 05/25/18 17:12) NSAIDS (Non-Steroidal Anti-Inflamma [Nsaids] Allergy (Verified 05/25/18 16:05) Penicillins Allergy (Verified 05/25/18 16:05) Review of Systems Constitutional: PRESENT: fever(s). ABSENT: anorexia, chills Eyes: ABSENT: visual disturbances, other - Ocular pain Ears: ABSENT: hearing changes, other - Ear pain Nose, Mouth, and Throat: ABSENT: mouth pain, sore throat Cardiovascular: ABSENT: chest pain, palpitations Respiratory: ABSENT: cough, dyspnea Gastrointestinal: PRESENT: as per HPI, abdominal pain - Bilateral flank pain, nausea, vomiting. ABSENT: constipation, diarrhea Genitourinary: PRESENT: as per HPI, dysuria, other - Bilateral flank pain. ABSENT: hematuria Musculoskeletal: ABSENT: deformity, joint swelling Integumentary: ABSENT: pruritus, rash Neurological: ABSENT: confusion, convulsions, focal weakness, memory loss Psychiatric: ABSENT: anxiety, depression Endocrine: ABSENT: cold intolerance, heat intolerance Hematologic/Lymphatic: ABSENT: easy bleeding, easy bruising Physical Exam Vital Signs: Temp Pulse Resp BP Pulse Ox 102.1 F H 117 H 19 113/64 95 05/25/18 20:51 05/25/18 16:37 05/25/18 21:00 05/25/18 20:52 05/25/18 21:00 Intake & Output 05/23/18 05/24/18 05/25/18 23:59 23:59 23:59 Intake Total 3097 Balance 3097 Weight 72.2 kg General appearance: PRESENT: no acute distress, cooperative Head exam: PRESENT: atraumatic, normocephalic Eye exam: ABSENT: conjunctival injection, scleral icterus Ear exam: PRESENT: normal external ear exam. ABSENT: drainage Mouth exam: PRESENT: dry mucosa, neck supple Neck exam: ABSENT: thyromegaly, tracheal deviation Respiratory exam: PRESENT: clear to auscultation ju[place], symmetrical, unlabored Cardiovascular exam: PRESENT: RRR. ABSENT: clicks, gallop, rubs Pulses: PRESENT: normal radial pulses, normal dorsalis pedis pul Vascular exam: PRESENT: normal capillary refill. ABSENT: pallor GI/Abdominal exam: PRESENT: normal bowel sounds, soft, tenderness - Bilateral CVA and flank tenderness to palpation Rectal exam: PRESENT: deferred Extremities exam: ABSENT: joint swelling, pedal edema Musculoskeletal exam: PRESENT: full ROM, normal inspection Neurological exam: PRESENT: alert, awake, oriented to person, oriented to place, oriented to time, oriented to situation, CN II-XII grossly intact. ABSENT: motor sensory deficit Psychiatric exam: PRESENT: appropriate affect, normal mood Skin exam: PRESENT: dry, intact, warm. ABSENT: jaundice, rash, urticaria Results Laboratory Results: 05/25/18 17:58 05/25/18 17:58 05/25/18 05/25/18 05/25/18 17:58 17:58 17:58 WBC 28.4 H RBC 4.10 Hgb 12.9 Hct 37.3 MCV 91 MCH 31.4 MCHC 34.5 RDW 13.0 Plt Count 486 H Seg Neutrophils % Not Reportable Lymphocytes % Not Reportable Monocytes % Not Reportable Eosinophils % Not Reportable Basophils % Not Reportable Absolute Neutrophils Not Reportable Absolute Lymphocytes Not Reportable Absolute Monocytes Not Reportable Absolute Eosinophils Not Reportable Absolute Basophils Not Reportable Sodium 135.2 L Potassium 4.0 Chloride 93 L Carbon Dioxide 27 Anion Gap 15 BUN 11 Creatinine 0.83 Est GFR ( Amer) > 60 Est GFR (Non-Af Amer) > 60 Glucose 96 Lactic Acid Cancelled Calcium 9.9 Total Bilirubin 1.4 H AST 27 ALT 50 Alkaline Phosphatase 212 H Total Protein 7.2 Albumin 4.1 Lipase 19.2 L Urine Color Urine Appearance Urine pH Ur Specific [place] Urine Protein Urine Glucose (UA) Urine Ketones Urine Blood Urine Nitrite Ur Leukocyte Esterase Urine WBC (Auto) Urine RBC (Auto) 05/25/18 05/25/18 17:58 17:58 WBC RBC Hgb Hct MCV MCH MCHC RDW Plt Count Seg Neutrophils % Lymphocytes % Monocytes % Eosinophils % Basophils % Absolute Neutrophils Absolute Lymphocytes Absolute Monocytes Absolute Eosinophils Absolute Basophils Sodium Potassium Chloride Carbon Dioxide Anion Gap BUN Creatinine Est GFR ( Amer) Est GFR (Non-Af Amer) Glucose Lactic Acid 3.0 H Calcium Total Bilirubin AST ALT Alkaline Phosphatase Total Protein Albumin Lipase Urine Color KARON Urine Appearance CLOUDY Urine pH 5.0 Ur Specific [place] 1.015 Urine Protein 30 H Urine Glucose (UA) NEGATIVE Urine Ketones NEGATIVE Urine Blood LARGE H Urine Nitrite NEGATIVE Ur Leukocyte Esterase SMALL H Urine WBC (Auto) 23 Urine RBC (Auto) 41 Impressions: Chest X-Ray 05/25/18 17:20 IMPRESSION: NO ACUTE RADIOGRAPHIC FINDING IN THE CHEST. Abdomen/Pelvis CT 05/25/18 19:16 IMPRESSION: Perinephric stranding bilaterally right greater than left concerning for pyelonephritis. No evidence of nephrolithiasis or hydronephrosis Small uterine fibroid Assessment and Plan - Diagnosis (1) SIRS (systemic inflammatory response syndrome) Is this a current diagnosis for this admission?: Yes Plan: Patient serum lactate will be reevaluated on a regular basis, while she is being initially hydrated, to establish or help to eliminate the diagnosis of sepsis. Blood cultures will be obtained x2 and patient will be treated with appropriate IV antibiotics for possible sepsis. (2) Pyelonephritis Is this a current diagnosis for this admission?: Yes Plan: Patient be treated with appropriate IV antibiotic therapy utilizing meropenem due to her multiple drug allergies precluding other possible antibiotic usage. (3) Tobacco use disorder, severe, dependence Is this a current diagnosis for this admission?: Yes Plan: Smoking cessation is advised and brief smoking cessation counseling is provided. A nicotine replacement patch will be available to patient as required. (4) Adult ADHD (attention deficit hyperactivity disorder) Is this a current diagnosis for this admission?: Yes Plan: Patient will be continued on her usual medications for adult attention deficit hyperactivity disorder. - Time Time Spent with patient: 25-34 minutes Smoking Cessation Education: 3 to 10 minutes Medications reviewed and adjusted accordingly: Yes Anticipated discharge: Home - Inpatient Certification Based on my medical assessment, after consideration of the patient's comorbidities, presenting symptoms, or acuity I expect that the services needed warrant INPATIENT care.: Yes I certify that my determination is in accordance with my understanding of Medicare's requirements for reasonable and necessary INPATIENT services [42 CFR 412.3e].: Yes Medical Necessity: Failure to Improve With Outpatient Therapy, Need Close Monitoring Due to Risk of Patient Decompensation, Need For IV Fluids, Need for IV Antibiotics, Risk of Complication if Not Cared For in Hospital
[2018-05-26 03:35] LABS: ABSOLUTE BASOPHILS # (AUTO) 0.2 10^3/uL (0.0-0.2); ABSOLUTE EOSINOPHILS # (AUTO) 0.1 10^3/uL (0.0-0.6); ABSOLUTE LYMPHOCYTES (AUTO) 2.6 10^3/uL (0.5-4.7); ABSOLUTE MONOCYTES (AUTO) 2.1 10^3/uL (0.1-1.4); ABSOLUTE NEUT (AUTO) 12.4 10^3/uL (1.7-8.2); BASOPHILS % (AUTO) 0.9 % (0-2); EOSINOPHILS % (AUTO) 0.3 % (0-6); HEMATOCRIT 28.7 % (36.0-47.0); LYMPHOCYTES % (AUTO) 15.2 % (13-45); MEAN CORPUSCULAR HEMOGLOBIN 31.2 pg (27.0-33.4); MEAN CORPUSCULAR HGB CONC 34.9 g/dL (32.0-36.0); MEAN CORPUSCULAR VOLUME 89 fl (80-97); MONOCYTES % (AUTO) 11.9 % (3-13); PLATELET COUNT 246 10^3/uL (150-450); RED BLOOD COUNT 3.21 10^6/uL (3.72-5.28); RED CELL DISTRIBUTION WIDTH 12.7 % (11.5-14.0); SEGMENTED NEUTROPHILS % (AUTO) 71.7 % (42-78); TOTAL CELLS COUNTED % (AUTO) 100 %; WHITE BLOOD COUNT 17.4 10^3/uL (4.0-10.5)
[2018-05-26 03:45] LABS: BLOOD UREA NITROGEN 7 mg/dL (7-20); CALCIUM 8.4 mg/dL (8.4-10.2); GLUCOSE 111 mg/dL (75-110); POTASSIUM 3.5 mmol/L (3.6-5.0)
[2018-05-26 03:57] LABS: ANION GAP 6 (5-19); CARBON DIOXIDE 26 mmol/L (22-30); CHLORIDE 103 mmol/L (98-107); SODIUM 134.5 mmol/L (137-145)
[2018-05-26 04:11] LABS: FREE T3 3.88 pg/mL (2.77-5.27); FREE T4 (FREE THYROXINE) 1.19 ng/dL (0.78-2.19)
[2018-05-26 04:25] LABS: THYROID STIMULATING HORMONE 1.41 uIU/mL (0.47-4.68)
[2018-05-26] MEDS: HEPARIN SOD (PORCINE) 5,000 UNIT/ML 1 ML SYRINGE SUBCUT SCH ×3 (05:19→21:30)
[2018-05-26] MEDS ORDERED: MEROPENEM 1 GM VIAL ONE (06:01)
[2018-05-26] MEDS: MEROPENEM 1 GM in NORMAL SALINE 50 ML IV SCH ×3 (06:46→21:43)
[2018-05-26] MEDS: RINGERS SOLUTION,LACTATED 1,000 ML IV PRN ×2 (07:56→11:19)
[2018-05-26] MEDS: TRAZODONE HCL 50 MG TABLET PO SCH ×2 (09:31→21:42)
[2018-05-26] MEDS: DOCUSATE SODIUM 100 MG CAPSULE PO SCH ×2 (09:37→17:09)
[2018-05-26] MEDS: CLONAZEPAM 1 MG TABLET PO SCH ×3 (09:37→17:09)
[2018-05-26] MEDS: FAMOTIDINE 20 MG TABLET PO SCH ×2 (09:38→21:42)
[2018-05-26] MEDS ORDERED: (PENDING PHARMACY ID) (Dextroamphetamine/Amphetamine [Adderall 20 Mg Tablet] 20 MG) PO SCH (10:00)
[2018-05-26] MEDS ORDERED: LAMOTRIGINE 100 MG TABLET PO SCH (10:00)
[2018-05-26] MEDS ORDERED: POTASSIUM CHLORIDE 10 MEQ CAPSULE.ER PO ONE (10:38)
[2018-05-26] MEDS ORDERED: (PENDING PHARMACY ID) (Lamotrigine [Lamictal] 50 MG) PO SCH (10:45)
[2018-05-26] MEDS ORDERED: [UNRECOGNIZED DRUG - OTHER] PO SCH (10:45)
[2018-05-26] MEDS ORDERED: AMPHETAMINE PO SCH (10:45)
[2018-05-26] MEDS ORDERED: DEXTROAMPHETAMINE PO SCH (10:45)
--- NOTE | 2018-05-26 10:54 | PDOC PROGRESS REPORT ---
Subjective Progress Note for:: 05/26/18 Subjective:: 42 year old female who presented to the emergency room with a 10-day history of a progressively worsening urinary tract infection. She admits that she developed urinary symptoms of difficulty initiating the urinary stream, post voiding dysuria and bilateral lower back/flank pain approximately 10 days ago and began taking Azo [id number] until she could be seen by her primary care provider. She saw her doctor 2 days prior to admission and was started on Keflex but with this she not only did not improve but had worsening of her symptoms. Blood work was obtained by her primary care provider yesterday morning and in the evening she noted the onset of fever and nausea with vomiting. After contacting her primary care provider again today she was instructed to come to the emergency room for evaluation. She admits that she has severe pain in both of her flanks as well as moderate to severe nausea with vomiting and a severe fever to 103.8 F. She admits prior similar episodes, but none this severe. She has not identified any aggravating or ameliorating factors for her urinary tract infection symptoms. In the emergency room she was found to have a CT of abdomen pelvis which demonstrated bilateral pyelonephritis and she was also noted to have a significantly elevated white blood count and an elevated serum lactic acid. She was subsequently admitted to the hospital for further evaluation and treatment. 05/[id number]-[id number]-old female admitted for bilateral pyelonephritis. Urine cultures blood cultures are negative. Initial lactic acid level is 3.0 and it is improved 2.7. Patient is on morphine on a regular basis. Still complaining of pain. WBC count came down to 17,400. Patient still have a low-grade fever of 100. Reason For Visit: SIRS Physical Exam Vital Signs: Temp Pulse Resp BP Pulse Ox 100.2 F 102 H 18 103/62 96 05/26/18 00:53 05/26/18 00:53 05/26/18 00:53 05/26/18 00:53 05/26/18 00:53 Intake & Output 05/25/18 05/26/18 05/27/18 06:59 06:59 06:59 Intake Total 4097 518 Balance 4097 518 Weight 77.2 kg General appearance: PRESENT: mild distress, well-developed Head exam: PRESENT: atraumatic Eye exam: PRESENT: PERRLA Mouth exam: PRESENT: moist, tongue midline Neck exam: ABSENT: carotid bruit, JVD, lymphadenopathy, thyromegaly Respiratory exam: PRESENT: decreased breath sounds Cardiovascular exam: PRESENT: tachycardia GI/Abdominal exam: PRESENT: other - Bilateral costovertebral angle tenderness present. Bowel sounds are present. No organomegaly. Extremities exam: PRESENT: full ROM. ABSENT: calf tenderness, clubbing, pedal edema Neurological exam: PRESENT: alert, awake, oriented to person, oriented to place, oriented to time, oriented to situation, CN II-XII grossly intact. ABSENT: motor sensory deficit Psychiatric exam: PRESENT: appropriate affect, normal mood. ABSENT: homicidal ideation, suicidal ideation Results Laboratory Results: 05/26/18 03:10 05/26/18 03:10 05/25/18 05/25/18 05/25/18 17:58 17:58 17:58 WBC 28.4 H RBC 4.10 Hgb 12.9 Hct 37.3 MCV 91 MCH 31.4 MCHC 34.5 RDW 13.0 Plt Count 486 H Seg Neutrophils % Not Reportable Lymphocytes % Not Reportable Monocytes % Not Reportable Eosinophils % Not Reportable Basophils % Not Reportable Absolute Neutrophils Not Reportable Absolute Lymphocytes Not Reportable Absolute Monocytes Not Reportable Absolute Eosinophils Not Reportable Absolute Basophils Not Reportable Sodium 135.2 L Potassium 4.0 Chloride 93 L Carbon Dioxide 27 Anion Gap 15 BUN 11 Creatinine 0.83 Est GFR ( Amer) > 60 Est GFR (Non-Af Amer) > 60 Glucose 96 Lactic Acid Cancelled Calcium 9.9 Magnesium Total Bilirubin 1.4 H AST 27 ALT 50 Alkaline Phosphatase 212 H Total Protein 7.2 Albumin 4.1 Lipase 19.2 L TSH Free T4 Free T3 pg/mL Urine Color Urine Appearance Urine pH Ur Specific [place] Urine Protein Urine Glucose (UA) Urine Ketones Urine Blood Urine Nitrite Ur Leukocyte Esterase Urine WBC (Auto) Urine RBC (Auto) 05/25/18 05/25/18 05/25/18 17:58 17:58 23:17 WBC RBC Hgb Hct MCV MCH MCHC RDW Plt Count Seg Neutrophils % Lymphocytes % Monocytes % Eosinophils % Basophils % Absolute Neutrophils Absolute Lymphocytes Absolute Monocytes Absolute Eosinophils Absolute Basophils Sodium Potassium Chloride Carbon Dioxide Anion Gap BUN Creatinine Est GFR ( Amer) Est GFR (Non-Af Amer) Glucose Lactic Acid 3.0 H 1.1 Calcium Magnesium Total Bilirubin AST ALT Alkaline Phosphatase Total Protein Albumin Lipase TSH Free T4 Free T3 pg/mL Urine Color KARON Urine Appearance CLOUDY Urine pH 5.0 Ur Specific [place] 1.015 Urine Protein 30 H Urine Glucose (UA) NEGATIVE Urine Ketones NEGATIVE Urine Blood LARGE H Urine Nitrite NEGATIVE Ur Leukocyte Esterase SMALL H Urine WBC (Auto) 23 Urine RBC (Auto) 41 05/26/18 05/26/18 05/26/18 03:10 03:10 03:10 WBC 17.4 H RBC 3.21 L Hgb 10.0 L D Hct 28.7 L MCV 89 MCH 31.2 MCHC 34.9 RDW 12.7 Plt Count 246 Seg Neutrophils % 71.7 Lymphocytes % 15.2 Monocytes % 11.9 Eosinophils % 0.3 Basophils % 0.9 Absolute Neutrophils 12.4 H Absolute Lymphocytes 2.6 Absolute Monocytes 2.1 H Absolute Eosinophils 0.1 Absolute Basophils 0.2 Sodium 134.5 L Potassium 3.5 L Chloride 103 Carbon Dioxide 26 Anion Gap 6 BUN 7 Creatinine 0.64 Est GFR ( Amer) > 60 Est GFR (Non-Af Amer) > 60 Glucose 111 H Lactic Acid 0.7 Calcium 8.4 Magnesium 1.3 L Total Bilirubin AST ALT Alkaline Phosphatase Total Protein Albumin Lipase TSH Free T4 Free T3 pg/mL Urine Color Urine Appearance Urine pH Ur Specific [place] Urine Protein Urine Glucose (UA) Urine Ketones Urine Blood Urine Nitrite Ur Leukocyte Esterase Urine WBC (Auto) Urine RBC (Auto) 05/26/18 05/26/18 03:10 08:08 WBC RBC Hgb Hct MCV MCH MCHC RDW Plt Count Seg Neutrophils % Lymphocytes % Monocytes % Eosinophils % Basophils % Absolute Neutrophils Absolute Lymphocytes Absolute Monocytes Absolute Eosinophils Absolute Basophils Sodium Potassium Chloride Carbon Dioxide Anion Gap BUN Creatinine Est GFR ( Amer) Est GFR (Non-Af Amer) Glucose Lactic Acid 0.7 Calcium Magnesium Total Bilirubin AST ALT Alkaline Phosphatase Total Protein Albumin Lipase TSH 1.41 Free T4 1.19 Free T3 pg/mL 3.88 Urine Color Urine Appearance Urine pH Ur Specific [place] Urine Protein Urine Glucose (UA) Urine Ketones Urine Blood Urine Nitrite Ur Leukocyte Esterase Urine WBC (Auto) Urine RBC (Auto) Impressions: Chest X-Ray 05/25/18 17:20 IMPRESSION: NO ACUTE RADIOGRAPHIC FINDING IN THE CHEST. Abdomen/Pelvis CT 05/25/18 19:16 IMPRESSION: Perinephric stranding bilaterally right greater than left concerning for pyelonephritis. No evidence of nephrolithiasis or hydronephrosis Small uterine fibroid Assessment and Plan - Diagnosis (1) SIRS (systemic inflammatory response syndrome) Is this a current diagnosis for this admission?: Yes Plan: Patient serum lactate will be reevaluated on a regular basis, while she is being initially hydrated, to establish or help to eliminate the diagnosis of sepsis. Blood cultures will be obtained x2 and patient will be treated with appropriate IV antibiotics for possible sepsis. 05/26/2018-latest lactic acid level is 0.9. Patient admitted with bilateral pyelonephritis, on IV meropenem. Presently on IV fluids and cultures are negative so far. Plan is to continue the present management. (2) Pyelonephritis Is this a current diagnosis for this admission?: Yes Plan: Patient be treated with appropriate IV antibiotic therapy utilizing meropenem due to her multiple drug allergies precluding other possible antibiotic usage. 05/26/2018-patient admitted with pyelonephritis on meropenem lactic acid level is improved tachycardia is improving. Urine cultures and blood cultures are pending. (3) Adult ADHD (attention deficit hyperactivity disorder) Is this a current diagnosis for this admission?: Yes Plan: Patient will be continued on her usual medications for adult attention deficit hyperactivity disorder. 05/[id number]-old female with history of ADHD on Adderall at home plan to resume the medications during the hospital stay. (4) Bipolar disorder Is this a current diagnosis for this admission?: No Plan: 05/26/2018-patient has history of bipolar disorder she is taking trazodone, Lamictal, desvenlafaxine. And is to resume those medications during the hospital stay. (5) Tobacco use disorder, severe, dependence Is this a current diagnosis for this admission?: Yes Plan: Smoking cessation is advised and brief smoking cessation counseling is provided. A nicotine replacement patch will be available to patient as required. 05/26/2018-smoking counseling provided again today for more than 10 minutes. Strongly advised to quit smoking. (6) Hypomagnesemia Is this a current diagnosis for this admission?: Yes Plan: 05/26/2018-patient serum magnesium is 1.3 to give 4 g of IV magnesium today. - Time Time Spent with patient: 15-24 minutes Smoking Cessation Education: over 10 minutes Medications reviewed and adjusted accordingly: Yes Anticipated discharge: Home
[2018-05-26] MEDS ORDERED: MAGNESIUM SULFATE 4 GM/100 ML RTUPB IV ONE (12:00)
[2018-05-26] MEDS: LAMOTRIGINE 25 MG TAB.CHEW PO SCH ×2 (13:01→21:30)
[2018-05-26] MEDS ORDERED: RINGERS SOLUTION,LACTATED 500 ML IV PRN (13:42)
[2018-05-26] MEDS: MAGNESIUM OXIDE 400 MG TABLET PO SCH ×2 (13:52→17:09)
[2018-05-26] MEDS ORDERED: (PENDING PHARMACY ID) (Trazodone Hcl [Desyrel] 200 MG) PO SCH (22:00)
[2018-05-27] MEDS ORDERED: RINGERS SOLUTION,LACTATED 1,000 ML IV ONE (04:15)
[2018-05-27] MEDS: MORPHINE SULFATE 10 MG/ML INJ IV PRN ×4 (04:44→21:43)
[2018-05-27] MEDS: HEPARIN SOD (PORCINE) 5,000 UNIT/ML 1 ML SYRINGE SUBCUT SCH ×3 (05:11→21:25)
[2018-05-27] MEDS: MEROPENEM 1 GM in NORMAL SALINE 50 ML IV SCH ×3 (05:13→21:32)
[2018-05-27 05:29] LABS: HEMATOCRIT 28.6 % (36.0-47.0); MEAN CORPUSCULAR HEMOGLOBIN 31.6 pg (27.0-33.4); MEAN CORPUSCULAR VOLUME 90 fl (80-97); PLATELET COUNT 308 10^3/uL (150-450); RED BLOOD COUNT 3.17 10^6/uL (3.72-5.28); RED CELL DISTRIBUTION WIDTH 12.8 % (11.5-14.0); WHITE BLOOD COUNT 10.3 10^3/uL (4.0-10.5)
[2018-05-27 06:09] LABS: ALANINE AMINOTRANSFERASE 40 U/L (9-52); ALBUMIN 2.6 g/dL (3.5-5.0); ALKALINE PHOSPHATASE 161 U/L (38-126); ANION GAP 6 (5-19); ASPARTATE AMINO TRANSFERASE 23 U/L (14-36); BILIRUBIN,DIRECT 0.5 mg/dL (0.0-0.4); BILIRUBIN,TOTAL 0.6 mg/dL (0.2-1.3); BLOOD UREA NITROGEN 5 mg/dL (7-20); CALCIUM 8.3 mg/dL (8.4-10.2); CARBON DIOXIDE 29 mmol/L (22-30); CHLORIDE 101 mmol/L (98-107); GLUCOSE 107 mg/dL (75-110); POTASSIUM 4.1 mmol/L (3.6-5.0); SODIUM 136.3 mmol/L (137-145)
[2018-05-27 06:28] LABS: ABSOLUTE LYMPHOCYTES# (MANUAL) 1.2 10^3/uL (0.5-4.7); ABSOLUTE MONOCYTES # (MANUAL) 0.8 10^3/uL (0.1-1.4); ABSOLUTE NEUTROPHILS# (MANUAL) 8.2 10^3/uL (1.7-8.2); BASOPHILS % (MANUAL) 0 % (0-2); EOSINOPHILS % (MANUAL) 0 % (0-6); LYMPHOCYTES % (MANUAL) 12 % (13-45); MONOCYTES % (MANUAL) 8 % (3-13); SEGMENTED NEUTROPHILS % (MAN) 80 % (42-78); TOTAL CELLS COUNTED 100
[2018-05-27 06:29] LABS: RBC MORPHOLOGY COMMENT NORMO-CYTIC/CHROMIC; TOXIC GRANULATION SLIGHT
[2018-05-27 06:30] LABS: PLATELET COMMENT ADEQUATE
[2018-05-27] MEDS ORDERED: SUMATRIPTAN SUCCINATE INJ/PF 6 MG/0.5 ML SDV SUBCUT ONE (10:29)
--- NOTE | 2018-05-27 10:36 | PDOC PROGRESS REPORT ---
Subjective Progress Note for:: 05/27/18 Subjective:: 42 year old female who presented to the emergency room with a 10-day history of a progressively worsening urinary tract infection. She admits that she developed urinary symptoms of difficulty initiating the urinary stream, post voiding dysuria and bilateral lower back/flank pain approximately 10 days ago and began taking Azo [id number] until she could be seen by her primary care provider. She saw her doctor 2 days prior to admission and was started on Keflex but with this she not only did not improve but had worsening of her symptoms. Blood work was obtained by her primary care provider yesterday morning and in the evening she noted the onset of fever and nausea with vomiting. After contacting her primary care provider again today she was instructed to come to the emergency room for evaluation. She admits that she has severe pain in both of her flanks as well as moderate to severe nausea with vomiting and a severe fever to 103.8 F. She admits prior similar episodes, but none this severe. She has not identified any aggravating or ameliorating factors for her urinary tract infection symptoms. In the emergency room she was found to have a CT of abdomen pelvis which demonstrated bilateral pyelonephritis and she was also noted to have a significantly elevated white blood count and an elevated serum lactic acid. She was subsequently admitted to the hospital for further evaluation and treatment. 05/[id number]-pcop-old female admitted for bilateral pyelonephritis. Urine cultures blood cultures are negative. Initial lactic acid level is 3.0 and it is improved to 0.7. Patient is on morphine on a regular basis. Still complaining of pain. WBC count came down to 17,400. Patient still have a low- grade fever of 100. 05/27/[id number]-dleu-old female admitted for bilateral pyelonephritis. Urine cultures are negative, blood cultures are negative. Still have a 101 fever today. On examination no meningeal signs and symptoms. Complains of headaches requesting Imitrex. Has a fever of 101 this morning. Plan to repeat the blood cultures and chest x-ray. Reason For Visit: SIRS Physical Exam Vital Signs: Temp Pulse Resp BP Pulse Ox 101.1 F H 95 17 103/65 92 05/26/18 22:00 05/26/18 22:00 05/26/18 22:00 05/26/18 22:00 05/26/18 22:00 Intake & Output 05/26/18 05/27/18 05/28/18 06:59 06:59 06:59 Intake Total 4097 4033 Balance 4097 4033 Weight 77.2 kg 77.2 kg General appearance: PRESENT: no acute distress Head exam: PRESENT: atraumatic Eye exam: PRESENT: PERRLA Neck exam: ABSENT: carotid bruit, JVD, lymphadenopathy, thyromegaly Respiratory exam: PRESENT: clear to auscultation [place]. ABSENT: rales, rhonchi, wheezes Cardiovascular exam: PRESENT: RRR. ABSENT: diastolic murmur, rubs, systolic murmur GI/Abdominal exam: PRESENT: normal bowel sounds, soft. ABSENT: distended, guarding, mass, organolmegaly, rebound, tenderness Extremities exam: PRESENT: full ROM. ABSENT: calf tenderness, clubbing, pedal edema Neurological exam: PRESENT: alert, awake, oriented to person, oriented to place, oriented to time, oriented to situation, CN II-XII grossly intact. ABSENT: motor sensory deficit Psychiatric exam: PRESENT: appropriate affect, normal mood. ABSENT: homicidal ideation, suicidal ideation Results Laboratory Results: 05/27/18 04:40 05/27/18 04:40 05/27/18 05/27/18 04:40 04:40 WBC 10.3 RBC 3.17 L Hgb 10.0 L Hct 28.6 L MCV 90 MCH 31.6 MCHC 35.0 RDW 12.8 Plt Count 308 Seg Neutrophils % Not Reportable Lymphocytes % Not Reportable Monocytes % Not Reportable Eosinophils % Not Reportable Basophils % Not Reportable Absolute Neutrophils Not Reportable Absolute Lymphocytes Not Reportable Absolute Monocytes Not Reportable Absolute Eosinophils Not Reportable Absolute Basophils Not Reportable Sodium 136.3 L Potassium 4.1 Chloride 101 Carbon Dioxide 29 Anion Gap 6 BUN 5 L Creatinine 0.66 Est GFR ( Amer) > 60 Est GFR (Non-Af Amer) > 60 Glucose 107 Calcium 8.3 L Magnesium 1.8 Total Bilirubin 0.6 AST 23 ALT 40 Alkaline Phosphatase 161 H Total Protein 5.0 L Albumin 2.6 L 05/25/18 17:58 Clean Catch Midstream Urine Culture - Final NO GROWTH 2 DAYS Impressions: Chest X-Ray 05/25/18 17:20 IMPRESSION: NO ACUTE RADIOGRAPHIC FINDING IN THE CHEST. Abdomen/Pelvis CT 05/25/18 19:16 IMPRESSION: Perinephric stranding bilaterally right greater than left concerning for pyelonephritis. No evidence of nephrolithiasis or hydronephrosis Small uterine fibroid Assessment and Plan - Diagnosis (1) SIRS (systemic inflammatory response syndrome) Is this a current diagnosis for this admission?: Yes Plan: Patient serum lactate will be reevaluated on a regular basis, while she is being initially hydrated, to establish or help to eliminate the diagnosis of sepsis. Blood cultures will be obtained x2 and patient will be treated with appropriate IV antibiotics for possible sepsis. 05/26/2018-latest lactic acid level is 0.9. Patient admitted with bilateral pyelonephritis, on IV meropenem. Presently on IV fluids and cultures are negative so far. Plan is to continue the present management. 05/27/2018-latest lactic acid level is 0.7. On IV meropenem. Blood cultures and urine cultures are negative. Has a spiking fever of 101 today. She is allergic to Tylenol and Motrin. Requesting Imitrex for headaches. No signs of meningitis on examination. Plan to repeat the chest x-ray, blood cultures today. (2) Pyelonephritis Is this a current diagnosis for this admission?: Yes Plan: Patient be treated with appropriate IV antibiotic therapy utilizing meropenem due to her multiple drug allergies precluding other possible antibiotic usage. 05/26/2018-patient admitted with pyelonephritis on meropenem lactic acid level is improved tachycardia is improving. Urine cultures and blood cultures are pending. 05/27/2018-patient was admitted with bilateral pyelonephritis, on meropenem. Blood cultures urine cultures are negative. Has a fever of 101 this morningplan to repeat blood cultures and urine culture. (3) Adult ADHD (attention deficit hyperactivity disorder) Is this a current diagnosis for this admission?: Yes Plan: Patient will be continued on her usual medications for adult attention deficit hyperactivity disorder. 05/[id number]-jxwe-old female with history of ADHD on Adderall at home plan to resume the medications during the hospital stay. (4) Bipolar disorder Is this a current diagnosis for this admission?: No Plan: 05/26/2018-patient has history of bipolar disorder she is taking trazodone, Lamictal, desvenlafaxine. And is to resume those medications during the hospital stay. (5) Tobacco use disorder, severe, dependence Is this a current diagnosis for this admission?: Yes (6) Hypomagnesemia Is this a current diagnosis for this admission?: Yes Plan: 05/26/2018-patient serum magnesium is 1.3 to give 4 g of IV magnesium today. 05/27/2018-serum magnesium today is 1.8 hypomagnesemia is resolved. - Time Time Spent with patient: 15-24 minutes Smoking Cessation Education: over 10 minutes Medications reviewed and adjusted accordingly: Yes Anticipated discharge: Home
[2018-05-27] MEDS: MAGNESIUM OXIDE 400 MG TABLET PO SCH ×3 (10:54→19:02)
[2018-05-27] MEDS: FAMOTIDINE 20 MG TABLET PO SCH ×2 (10:54→21:31)
[2018-05-27] MEDS: CLONAZEPAM 1 MG TABLET PO SCH ×3 (10:54→19:02)
[2018-05-27] MEDS: TRAZODONE HCL 50 MG TABLET PO SCH ×3 (10:54→21:33)
[2018-05-27] MEDS: DOCUSATE SODIUM 100 MG CAPSULE PO SCH ×2 (10:55→19:02)
[2018-05-27] MEDS: LAMOTRIGINE 25 MG TAB.CHEW PO SCH ×2 (10:56→21:31)
[2018-05-27] MEDS: RINGERS SOLUTION,LACTATED 1,000 ML IV PRN (21:32)
[2018-05-28] MEDS: HEPARIN SOD (PORCINE) 5,000 UNIT/ML 1 ML SYRINGE SUBCUT SCH ×3 (05:53→22:00)
[2018-05-28] MEDS: MEROPENEM 1 GM in NORMAL SALINE 50 ML IV SCH (05:56)
[2018-05-28 06:59] LABS: ABSOLUTE BASOPHILS # (AUTO) 0.1 10^3/uL (0.0-0.2); ABSOLUTE EOSINOPHILS # (AUTO) 0.2 10^3/uL (0.0-0.6); ABSOLUTE LYMPHOCYTES (AUTO) 1.7 10^3/uL (0.5-4.7); ABSOLUTE MONOCYTES (AUTO) 0.9 10^3/uL (0.1-1.4); BASOPHILS % (AUTO) 1.2 % (0-2); EOSINOPHILS % (AUTO) 2.5 % (0-6); HEMATOCRIT 28.9 % (36.0-47.0); HEMOGLOBIN 10.2 g/dL (12.0-15.5); LYMPHOCYTES % (AUTO) 24.9 % (13-45); MEAN CORPUSCULAR HEMOGLOBIN 31.7 pg (27.0-33.4); MEAN CORPUSCULAR HGB CONC 35.2 g/dL (32.0-36.0); MEAN CORPUSCULAR VOLUME 90 fl (80-97); PLATELET COUNT 342 10^3/uL (150-450); RED BLOOD COUNT 3.21 10^6/uL (3.72-5.28); RED CELL DISTRIBUTION WIDTH 12.9 % (11.5-14.0); SEGMENTED NEUTROPHILS % (AUTO) 58.4 % (42-78); TOTAL CELLS COUNTED % (AUTO) 100 %; WHITE BLOOD COUNT 6.8 10^3/uL (4.0-10.5)
[2018-05-28 07:19] LABS: ALANINE AMINOTRANSFERASE 45 U/L (9-52); ALBUMIN 2.8 g/dL (3.5-5.0); ALKALINE PHOSPHATASE 187 U/L (38-126); ANION GAP 7 (5-19); ASPARTATE AMINO TRANSFERASE 47 U/L (14-36); BILIRUBIN,DIRECT 0.4 mg/dL (0.0-0.4); BILIRUBIN,TOTAL 0.4 mg/dL (0.2-1.3); BLOOD UREA NITROGEN 5 mg/dL (7-20); CALCIUM 8.4 mg/dL (8.4-10.2); CARBON DIOXIDE 31 mmol/L (22-30); CHLORIDE 97 mmol/L (98-107); GLUCOSE 102 mg/dL (75-110); POTASSIUM 4.3 mmol/L (3.6-5.0); SODIUM 134.6 mmol/L (137-145); TOTAL PROTEIN 5.2 g/dL (6.3-8.2)
[2018-05-28] MEDS: MORPHINE SULFATE 10 MG/ML INJ IV PRN ×4 (08:54→22:17)
[2018-05-28] MEDS: TRAZODONE HCL 50 MG TABLET PO SCH ×2 (09:03→22:01)
[2018-05-28] MEDS: LAMOTRIGINE 25 MG TAB.CHEW PO SCH ×2 (09:05→22:01)
[2018-05-28] MEDS: CLONAZEPAM 1 MG TABLET PO SCH ×3 (09:05→18:50)
[2018-05-28] MEDS: MAGNESIUM OXIDE 400 MG TABLET PO SCH ×3 (09:05→18:50)
[2018-05-28] MEDS: DOCUSATE SODIUM 100 MG CAPSULE PO SCH ×2 (09:05→18:50)
[2018-05-28] MEDS: FAMOTIDINE 20 MG TABLET PO SCH ×2 (09:06→22:02)
--- NOTE | 2018-05-28 09:51 | EKG REPORT ---
SEVERITY:- NORMAL ECG - SINUS RHYTHM : Confirmed by: Chloe Dominguez MD 28-May-2018 09:51:09
[2018-05-28 10:29] LABS: CREATINE KINASE MB < 0.22 ng/mL (<4.55); TROPONIN I < 0.012 ng/mL
--- NOTE | 2018-05-28 11:25 | PDOC PROGRESS REPORT ---
Subjective Progress Note for:: 05/28/18 Subjective:: 42 year old female who presented to the emergency room with a 10-day history of a progressively worsening urinary tract infection. She admits that she developed urinary symptoms of difficulty initiating the urinary stream, post voiding dysuria and bilateral lower back/flank pain approximately 10 days ago and began taking Azo [id number] until she could be seen by her primary care provider. She saw her doctor 2 days prior to admission and was started on Keflex but with this she not only did not improve but had worsening of her symptoms. Blood work was obtained by her primary care provider yesterday morning and in the evening she noted the onset of fever and nausea with vomiting. After contacting her primary care provider again today she was instructed to come to the emergency room for evaluation. She admits that she has severe pain in both of her flanks as well as moderate to severe nausea with vomiting and a severe fever to 103.8 F. She admits prior similar episodes, but none this severe. She has not identified any aggravating or ameliorating factors for her urinary tract infection symptoms. In the emergency room she was found to have a CT of abdomen pelvis which demonstrated bilateral pyelonephritis and she was also noted to have a significantly elevated white blood count and an elevated serum lactic acid. She was subsequently admitted to the hospital for further evaluation and treatment. 05/[id number]-jjdy-old female admitted for bilateral pyelonephritis. Urine cultures blood cultures are negative. Initial lactic acid level is 3.0 and it is improved to 0.7. Patient is on morphine on a regular basis. Still complaining of pain. WBC count came down to 17,400. Patient still have a low- grade fever of 100. 05/27/[id number]-xyfu-old female admitted for bilateral pyelonephritis. Urine cultures are negative, blood cultures are negative. Still have a 101 fever today. On examination no meningeal signs and symptoms. Complains of headaches requesting Imitrex. Has a fever of 101 this morning. Plan to repeat the blood cultures and chest x-ray. 05/28/2018-patient complained of chest pain this morning. EKG was normal sinus rhythm and troponin is negative so far. Patient complaining of generalized pain in the chest abdomen and lower extremities. Patient has a low-grade fever. to place her on Percocet 5 325 mg every 6 hours as needed for pain. Reason For Visit: SIRS Physical Exam Vital Signs: Temp Pulse Resp BP Pulse Ox 99.0 F 85 17 133/83 H 92 05/28/18 08:37 05/28/18 08:37 05/28/18 08:37 05/28/18 08:37 05/28/18 08:37 Intake & Output 05/27/18 05/28/18 05/29/18 06:59 06:59 06:59 Intake Total 4033 176 Balance 4033 176 Weight 77.2 kg 80.2 kg General appearance: PRESENT: mild distress, well-developed Head exam: PRESENT: atraumatic Eye exam: PRESENT: PERRLA Mouth exam: PRESENT: moist, tongue midline Neck exam: ABSENT: carotid bruit, JVD, lymphadenopathy, thyromegaly Respiratory exam: PRESENT: clear to auscultation juarez. ABSENT: rales, rhonchi, wheezes Cardiovascular exam: PRESENT: RRR. ABSENT: diastolic murmur, rubs, systolic murmur Pulses: PRESENT: normal dorsalis pedis pul Rectal exam: PRESENT: deferred Extremities exam: PRESENT: full ROM. ABSENT: calf tenderness, clubbing, pedal edema Neurological exam: PRESENT: alert, awake, oriented to person, oriented to place, oriented to time, oriented to situation, CN II-XII grossly intact. ABSENT: motor sensory deficit Psychiatric exam: PRESENT: appropriate affect, normal mood. ABSENT: homicidal ideation, suicidal ideation Results Laboratory Results: 05/28/18 06:35 05/28/18 06:35 05/28/18 05/28/18 06:35 06:35 WBC 6.8 RBC 3.21 L Hgb 10.2 L Hct 28.9 L MCV 90 MCH 31.7 MCHC 35.2 RDW 12.9 Plt Count 342 Seg Neutrophils % 58.4 Lymphocytes % 24.9 Monocytes % 13.0 Eosinophils % 2.5 Basophils % 1.2 Absolute Neutrophils 4.0 Absolute Lymphocytes 1.7 Absolute Monocytes 0.9 Absolute Eosinophils 0.2 Absolute Basophils 0.1 Sodium 134.6 L Potassium 4.3 Chloride 97 L Carbon Dioxide 31 H Anion Gap 7 BUN 5 L Creatinine 0.59 Est GFR ( Amer) > 60 Est GFR (Non-Af Amer) > 60 Glucose 102 Calcium 8.4 Magnesium 1.9 Total Bilirubin 0.4 AST 47 H ALT 45 Alkaline Phosphatase 187 H Total Protein 5.2 L Albumin 2.8 L 05/25/18 17:58 Clean Catch Midstream Urine Culture - Final NO GROWTH 2 DAYS 05/28/18 05/28/18 09:26 09:26 Creatine Kinase 35 CK-MB (CK-2) < 0.22 Troponin I < 0.012 Impressions: Chest X-Ray 05/25/18 17:20 IMPRESSION: NO ACUTE RADIOGRAPHIC FINDING IN THE CHEST. Abdomen/Pelvis CT 05/25/18 19:16 IMPRESSION: Perinephric stranding bilaterally right greater than left concerning for pyelonephritis. No evidence of nephrolithiasis or hydronephrosis Small uterine fibroid Assessment and Plan - Diagnosis (1) SIRS (systemic inflammatory response syndrome) Is this a current diagnosis for this admission?: Yes Plan: Patient serum lactate will be reevaluated on a regular basis, while she is being initially hydrated, to establish or help to eliminate the diagnosis of sepsis. Blood cultures will be obtained x2 and patient will be treated with appropriate IV antibiotics for possible sepsis. 05/26/2018-latest lactic acid level is 0.9. Patient admitted with bilateral pyelonephritis, on IV meropenem. Presently on IV fluids and cultures are negative so far. Plan is to continue the present management. 05/27/2018-latest lactic acid level is 0.7. On IV meropenem. Blood cultures and urine cultures are negative. Has a spiking fever of 101 today. She is allergic to Tylenol and Motrin. Requesting Imitrex for headaches. No signs of meningitis on examination. Plan to repeat the chest x-ray, blood cultures today. 05/28/2018-patient is presently on IV meropenem. Blood cultures and urine cultures came back negative. Has a low-grade fever of 99 today. Latest WBC count is 6800. Patient complained of generalized body pains and aches. Blood cultures repeated yesterday came back negative. Plan to do the chest x-ray today. Plan is to discontinue meropenem and start on levo floxacillin 500 mg IV daily. (2) Pyelonephritis Is this a current diagnosis for this admission?: Yes Plan: Patient be treated with appropriate IV antibiotic therapy utilizing meropenem due to her multiple drug allergies precluding other possible antibiotic usage. 05/26/2018-patient admitted with pyelonephritis on meropenem lactic acid level is improved tachycardia is improving. Urine cultures and blood cultures are pending. 05/27/2018-patient was admitted with bilateral pyelonephritis, on meropenem. Blood cultures urine cultures are negative. Has a fever of 101 this morningplan to repeat blood cultures and urine culture. 05/28/2018-patient was admitted with bilateral pyelonephritis. Meropenem. Blood cultures and urine cultures are negative repeat blood cultures from yesterday are negative so far. to Switch antibiotics meropenem to IV levo floxacillin. (3) Adult ADHD (attention deficit hyperactivity disorder) Is this a current diagnosis for this admission?: Yes Plan: Patient will be continued on her usual medications for adult attention deficit hyperactivity disorder. 05/26/[id number]-qdwa-old female with history of ADHD on Adderall at home plan to resume the medications during the hospital stay. 05/28/2018-patient has history of ADHD presently on Adderall. Plan is to continue the present management. (4) Bipolar disorder Is this a current diagnosis for this admission?: No Plan: 05/26/2018-patient has history of bipolar disorder she is taking trazodone, Lamictal, desvenlafaxine. plan is to resume those medications during the hospital stay. 05/28/2018-patient history of bipolar disorder on trazodone, Lamictal, desvenlafaxine. plan is to continue the present management. (5) Tobacco use disorder, severe, dependence Is this a current diagnosis for this admission?: Yes (6) Hypomagnesemia Is this a current diagnosis for this admission?: Yes Plan: 05/26/2018-patient serum magnesium is 1.3 to give 4 g of IV magnesium today. 05/27/2018-serum magnesium today is 1.8 hypomagnesemia is resolved. 05/28/2018-patient serum magnesium is 1.9 hypomagnesemia is resolved. - Time Time Spent with patient: 25-34 minutes Medications reviewed and adjusted accordingly: Yes Anticipated discharge: Home
[2018-05-28] MEDS ORDERED: LEVOFLOXACIN 750 MG/D5W RTU 750 MG/150 ML RTUPB IV SCH (11:30)
[2018-05-28] MEDS ORDERED: CEFTRIAXONE 2 GM/D5W RTU 2 GM/50 ML RTUPB IV SCH (14:00)
--- NOTE | 2018-05-28 14:47 | RADIOLOGY REPORT (SQ) ---
EXAM DESCRIPTION: CHEST SINGLE VIEW COMPLETED DATE/TIME: 05/28/2018 2:27 pm REASON FOR STUDY: CHEST PAIN COMPARISON: 05/25/2018. EXAM PARAMETERS: NUMBER OF VIEWS: One view. TECHNIQUE: Single frontal radiographic view of the chest acquired. RADIATION DOSE: NA LIMITATIONS: None. FINDINGS: LUNGS AND PLEURA: Focal density in the left costophrenic angle with blunting of the costop hrenic angle. Lungs otherwise clear. MEDIASTINUM AND HILAR STRUCTURES: No masses. Contour normal. HEART AND VASCULAR STRUCTURES: Heart normal in size. Normal vasculature. BONES: No acute findings. HARDWARE: None in the chest. OTHER: No other significant finding. IMPRESSION: DEVELOPING INFILTRATE IN THE LEFT COSTOPHRENIC ANGLE SUSPICIOUS FOR PNEUMONIA. SMALL PL EURAL EFFUSION. TECHNICAL DOCUMENTATION: JOB ID: [id number] [employer]- All Rights Reserved Reading location - IP/workstation name: [email or web address]
[2018-05-28 16:00] LABS: CREATINE KINASE MB < 0.22 ng/mL (<4.55); TROPONIN I < 0.012 ng/mL
[2018-05-28] MEDS: ONDANSETRON HCL INJ/PF 4 MG/2 ML SDV IV PRN (22:01)
[2018-05-28 22:24] LABS: CREATINE KINASE MB < 0.22 ng/mL (<4.55); TROPONIN I < 0.012 ng/mL
[2018-05-29] MEDS: HEPARIN SOD (PORCINE) 5,000 UNIT/ML 1 ML SYRINGE SUBCUT SCH (05:34)
[2018-05-29] MEDS: MORPHINE SULFATE 10 MG/ML INJ IV PRN (06:32)
[2018-05-29] MEDS: RINGERS SOLUTION,LACTATED 1,000 ML IV PRN (06:33)
[2018-05-29 09:23] LABS: ABSOLUTE BASOPHILS # (AUTO) 0.1 10^3/uL (0.0-0.2); ABSOLUTE EOSINOPHILS # (AUTO) 0.2 10^3/uL (0.0-0.6); ABSOLUTE LYMPHOCYTES (AUTO) 1.7 10^3/uL (0.5-4.7); ABSOLUTE MONOCYTES (AUTO) 0.7 10^3/uL (0.1-1.4); ABSOLUTE NEUT (AUTO) 3.3 10^3/uL (1.7-8.2); BASOPHILS % (AUTO) 1.2 % (0-2); EOSINOPHILS % (AUTO) 2.9 % (0-6); HEMATOCRIT 33.9 % (36.0-47.0); HEMOGLOBIN 11.7 g/dL (12.0-15.5); LYMPHOCYTES % (AUTO) 28.5 % (13-45); MEAN CORPUSCULAR HEMOGLOBIN 31.1 pg (27.0-33.4); MEAN CORPUSCULAR HGB CONC 34.4 g/dL (32.0-36.0); MEAN CORPUSCULAR VOLUME 90 fl (80-97); MONOCYTES % (AUTO) 11.8 % (3-13); PLATELET COUNT 435 10^3/uL (150-450); RED BLOOD COUNT 3.75 10^6/uL (3.72-5.28); RED CELL DISTRIBUTION WIDTH 12.9 % (11.5-14.0); SEGMENTED NEUTROPHILS % (AUTO) 55.6 % (42-78); TOTAL CELLS COUNTED % (AUTO) 100 %; WHITE BLOOD COUNT 5.9 10^3/uL (4.0-10.5)
[2018-05-29 09:33] LABS: ALANINE AMINOTRANSFERASE 38 U/L (9-52); ALBUMIN 3.2 g/dL (3.5-5.0); ALKALINE PHOSPHATASE 177 U/L (38-126); ANION GAP 8 (5-19); ASPARTATE AMINO TRANSFERASE 30 U/L (14-36); BILIRUBIN,DIRECT 0.3 mg/dL (0.0-0.4); BILIRUBIN,TOTAL 0.3 mg/dL (0.2-1.3); BLOOD UREA NITROGEN 6 mg/dL (7-20); CALCIUM 9.2 mg/dL (8.4-10.2); CARBON DIOXIDE 34 mmol/L (22-30); CHLORIDE 95 mmol/L (98-107); GLUCOSE 112 mg/dL (75-110); POTASSIUM 4.8 mmol/L (3.6-5.0); SODIUM 137.4 mmol/L (137-145); TOTAL PROTEIN 5.8 g/dL (6.3-8.2)
[2018-05-29 10:48] VITALS: BP 137/82
[2018-05-29] MEDS: MAGNESIUM OXIDE 400 MG TABLET PO SCH (10:48)
[2018-05-29] MEDS: CLONAZEPAM 1 MG TABLET PO SCH (10:49)
[2018-05-29] MEDS: FAMOTIDINE 20 MG TABLET PO SCH (10:49)
--- NOTE | 2018-05-29 12:36 | PDOC DISCHARGE SUMMARY ---
General - Admit/Disc Date/PCP Admission Date/Primary Care Provider: 05/25/18 22:03 AMALIA HOUSTON PA-C Discharge Date: 05/29/18 - Discharge Diagnosis (1) SIRS (systemic inflammatory response syndrome) Is this a current diagnosis for this admission?: Yes Summary: Patient serum lactate will be reevaluated on a regular basis, while she is being initially hydrated, to establish or help to eliminate the diagnosis of sepsis. Blood cultures will be obtained x2 and patient will be treated with appropriate IV antibiotics for possible sepsis. 05/26/2018-latest lactic acid level is 0.9. Patient admitted with bilateral pyelonephritis, on IV meropenem. Presently on IV fluids and cultures are negative so far. Plan is to continue the present management. 05/27/2018-latest lactic acid level is 0.7. On IV meropenem. Blood cultures and urine cultures are negative. Has a spiking fever of 101 today. She is allergic to Tylenol and Motrin. Requesting Imitrex for headaches. No signs of meningitis on examination. Plan to repeat the chest x-ray, blood cultures today. 05/28/2018-patient is presently on IV meropenem. Blood cultures and urine cultures came back negative. Has a low-grade fever of 99 today. Latest WBC count is 6800. Patient complained of generalized body pains and aches. Blood cultures repeated yesterday came back negative. Plan to do the chest x-ray today. Plan is to discontinue meropenem and start on levo floxacillin 500 mg IV daily. 05/29/2018-patient is going home on Bactrim DS 1 tablet twice daily for 5 days. Blood cultures and urine cultures are negative. Afebrile. WBC count is within normal limits. Patient is expressing desire to go home. I strongly advised her to follow-up with primary care physician in 3 to 5 days. (2) Pyelonephritis Is this a current diagnosis for this admission?: Yes Summary: Patient be treated with appropriate IV antibiotic therapy utilizing meropenem due to her multiple drug allergies precluding other possible antibiotic usage. 05/26/2018-patient admitted with pyelonephritis on meropenem lactic acid level is improved tachycardia is improving. Urine cultures and blood cultures are pending. 05/27/2018-patient was admitted with bilateral pyelonephritis, on meropenem. Blood cultures urine cultures are negative. Has a fever of 101 this morningplan to repeat blood cultures and urine culture. 05/28/2018-patient was admitted with bilateral pyelonephritis. Meropenem. Blood cultures and urine cultures are negative repeat blood cultures from yesterday are negative so far. to Switch antibiotics meropenem to IV levo floxacillin. 05/29/2018-patient was admitted with bilateral pyelonephritis patient was treated with IV meropenem. It was switched to IV Rocephin yesterday. Urine cultures and blood cultures done twice came back negative. She is going home on bactrim DS 1 tablet p.o. twice daily. (3) Adult ADHD (attention deficit hyperactivity disorder) Is this a current diagnosis for this admission?: Yes Summary: Patient will be continued on her usual medications for adult attention deficit hyperactivity disorder. 05/26/[id number]-vxqf-old female with history of ADHD on Adderall at home plan to resume the medications during the hospital stay. 05/28/2018-patient has history of ADHD presently on Adderall. Plan is to continue the present management. 05/29/2018-patient has history of ADHD presently on Adderall. During the hospital stay it was continued. (4) Bipolar disorder Is this a current diagnosis for this admission?: No (5) Tobacco use disorder, severe, dependence Is this a current diagnosis for this admission?: Yes (6) Hypomagnesemia Is this a current diagnosis for this admission?: Yes - Additional Information Resuscitation Status: Full Code Discharge Diet: As Tolerated, Regular Discharge Activity: Activity As Tolerated Prescriptions: Sulfamethoxazole/Trimethoprim [Bactrim Ds Tablet] 1 each PO BID #10 tablet Home Medications: Desvenlafaxine [Desvenlafaxine ER] 100 mg PO DAILY 05/26/18 Dextroamphetamine/Amphetamine [Adderall XR 20 mg Capsule] 1 cap.sr PO DAILY 05/26/18 Lamotrigine [Lamictal] 50 mg PO BID 05/26/18 Trazodone HCl [Desyrel] 200 mg PO QHS 05/26/18 Dextroamphetamine/Amphetamine [Adderall 20 mg Tablet] 20 mg PO TID 05/29/18 Sulfamethoxazole/Trimethoprim [Bactrim Ds Tablet] 1 each PO BID #10 tablet 05/29/18 Trazodone HCl [Desyrel 50 mg Tablet] 100 mg PO DAILY tablet 05/29/18 History of Present Illness History of Present Illness: TATI SCHAEFER is a 42 year old female 42 year old female who presented to the emergency room with a 10-day history of a progressively worsening urinary tract infection. She admits that she developed urinary symptoms of difficulty initiating the urinary stream, post voiding dysuria and bilateral lower back/flank pain approximately 10 days ago and began taking Azo [id number] until she could be seen by her primary care provider. She saw her doctor 2 days prior to admission and was started on Keflex but with this she not only did not improve but had worsening of her symptoms. Blood work was obtained by her primary care provider yesterday morning and in the evening she noted the onset of fever and nausea with vomiting. After contacting her primary care provider again today she was instructed to come to the emergency room for evaluation. She admits that she has severe pain in both of her flanks as well as moderate to severe nausea with vomiting and a severe fever to 103.8 F. She admits prior similar episodes, but none this severe. She has not identified any aggravating or ameliorating factors for her urinary tract infection symptoms. In the emergency room she was found to have a CT of abdomen pelvis which demonstrated bilateral pyelonephritis and she was also noted to have a significantly elevated white blood count and an elevated serum lactic acid. She was subsequently admitted to the hospital for further evaluation and treatment. Physical Exam Vital Signs: Temp Pulse Resp BP Pulse Ox 97.8 F 65 16 137/82 H 94 05/29/18 10:46 05/29/18 10:46 05/29/18 10:46 05/29/18 10:46 05/29/18 10:46 Intake & Output 05/28/18 05/29/18 05/30/18 06:59 06:59 06:59 Intake Total 176 2195 Balance 176 2195 Weight 80.2 kg 77.4 kg General appearance: PRESENT: no acute distress Head exam: PRESENT: atraumatic Eye exam: PRESENT: PERRLA Mouth exam: PRESENT: moist, tongue midline Neck exam: ABSENT: carotid bruit, JVD, lymphadenopathy, thyromegaly Respiratory exam: PRESENT: clear to auscultation juarez. ABSENT: rales, rhonchi, wheezes Cardiovascular exam: PRESENT: RRR. ABSENT: diastolic murmur, rubs, systolic murmur GI/Abdominal exam: PRESENT: normal bowel sounds, soft. ABSENT: distended, guarding, mass, organolmegaly, rebound, tenderness Neurological exam: PRESENT: alert, awake, oriented to person, oriented to place, oriented to time, oriented to situation, CN II-XII grossly intact. ABSENT: motor sensory deficit Results Laboratory Results: 05/29/18 08:53 05/29/18 08:53 05/29/18 05/29/18 08:53 08:53 WBC 5.9 RBC 3.75 Hgb 11.7 L Hct 33.9 L MCV 90 MCH 31.1 MCHC 34.4 RDW 12.9 Plt Count 435 Seg Neutrophils % 55.6 Lymphocytes % 28.5 Monocytes % 11.8 Eosinophils % 2.9 Basophils % 1.2 Absolute Neutrophils 3.3 Absolute Lymphocytes 1.7 Absolute Monocytes 0.7 Absolute Eosinophils 0.2 Absolute Basophils 0.1 Sodium 137.4 Potassium 4.8 Chloride 95 L Carbon Dioxide 34 H Anion Gap 8 BUN 6 L Creatinine 0.61 Est GFR ( Amer) > 60 Est GFR (Non-Af Amer) > 60 Glucose 112 H Calcium 9.2 Magnesium 2.2 Total Bilirubin 0.3 AST 30 ALT 38 Alkaline Phosphatase 177 H Total Protein 5.8 L Albumin 3.2 L 05/28/18 05/28/18 05/28/18 09:26 09:26 15:17 Creatine Kinase 35 37 CK-MB (CK-2) < 0.22 Troponin I < 0.012 05/28/18 05/28/18 05/28/18 15:17 21:30 21:30 Creatine Kinase 35 CK-MB (CK-2) < 0.22 < 0.22 Troponin I < 0.012 < 0.012 Impressions: Abdomen/Pelvis CT 05/25/18 19:16 IMPRESSION: Perinephric stranding bilaterally right greater than left concerning for pyelonephritis. No evidence of nephrolithiasis or hydronephrosis Small uterine fibroid Chest X-Ray 05/28/18 00:00 IMPRESSION: DEVELOPING INFILTRATE IN THE LEFT COSTOPHRENIC ANGLE SUSPICIOUS FOR PNEUMONIA. SMALL PLEURAL EFFUSION. Qualifiers - * PATIENT BEING DISCHARGED WITH ANY OF THE FOLLOWING DIAGNOSIS: No VTE patient discharged on overlapping Therapy?: No Plan Discharge Plan: Patient is going home today. Time Spent: Less than 30 Minutes
== END 2018-05-29 11:03 | disposition home or self-care (01) | DRG 690 ==
LOC: ER 16:04 → EH 22:03 → 4W 05-26 00:41
PROVIDERS: ADMIT Emergency Medicine; ATTEND Emergency Medicine
DX: N12 Tubulo-interstitial nephritis, not specified as acute or chronic (principal); R31.9 Hematuria, unspecified; Z88.6 Allergy status to analgesic agent; D72.829 Elevated white blood cell count, unspecified; K21.9 Gastro-esophageal reflux disease without esophagitis; M79.7 Fibromyalgia; M19.90 Unspecified osteoarthritis, unspecified site; F31.9 Bipolar disorder, unspecified; F90.9 Attention-deficit hyperactivity disorder, unspecified type; F17.200 Nicotine dependence, unspecified, uncomplicated; Z82.49 Family history of ischemic heart disease and other diseases of the circulatory system; Z88.0 Allergy status to penicillin; Z79.899 Other long term (current) drug therapy; E83.42 Hypomagnesemia
CPT/HCPCS: 36415; 71045; 74176; 80048; 80053; 81001; 82550; 82553; 83605; 83690; 83735; 84439; 84443; 84481; 84484; 85025; 87040; 87086; 93005; 93010; 96361; 96365; 96375; 99291; J0696; J0744; J2185; J2270; J2405; J3010; J3030; J3475; J3490; J7030; J7120

== ENCOUNTER → 2018-06-03 | Outpatient (CLI) | payer MEDICARE ==
--- NOTE | 2018-06-03 14:25 | RADIOLOGY REPORT (SQ) ---
EXAM DESCRIPTION: CTA CHEST COMPLETED DATE/TIME: 06/03/2018 1:56 pm REASON FOR STUDY: SOB (R06.02) R06.02 SHORTNESS OF BREATH COMPARISON: AP chest 05/28/2018 CT abdomen pelvis 05/25/2018 TECHNIQUE: CT scan of the chest performed using helical scanning technique with dynamic intravenous contrast injection. Images reviewed with lung, soft tissue and bone windows. Reconstructed coronal and sagittal MPR images reviewed. Additional 3 dimensional post-processing performed to develop Maximal Intensity Projection images (ID P). All images stored on PACS. All CT scanners at this facility use dose modulation, iterative reconstruction, and/or weight based d osing when appropriate to reduce radiation dose to as low as reasonably achievable (ALARA). [facility]: Dose Right [facility]: CareDose [facility]: Dose Right [facility]: Teradose 4D [facility]: ReInnervate CONTRAST TYPE AND DOSE: contrast/concentration: Isovue 350.00 mg/ml; Total Contrast Delivered: 64.0 ml; Total Saline Delivered: 105.6 ml Contrast bolus optimized for the pulmonary arteries and thoracic aorta. RENAL FUNCTION: Creatinine 0.8 RADIATION DOSE: CT Rad equipment meets quality standard of care and radiation dose reduction techniq ues were employed. CTDIvol: 7.2 - 9.4 mGy. DLP: 311 mGy-cm. . LIMITATIONS: None. FINDINGS: LUNGS AND PLEURA: No masses, infiltrates, or pneumothorax. No pleural effusions or pleura l calcifications. AORTA AND GREAT VESSELS: No aneurysm or thoracic aortic dissection. HEART: No pericardial effusion. No significant coronary artery calcifications. PULMONARY ARTERIES: No emboli visualized in the main pulmonary arteries or the segmental branches. HILAR AND MEDIASTINAL STRUCTURES: No identified masses or abnormal nodes. HARDWARE: None in the chest. UPPER ABDOMEN: No significant findings. Limited exam. THYROID AND OTHER SOFT TISSUES: No masses. No adenopathy. BONES: No acute or significant finding. 3D MIPS: Confirm above findings. OTHER: No other significant finding. IMPRESSION: NORMAL CTA OF THE CHEST. NO PULMONARY EMBOLI. COMMENT: Quality ID # [id number]: Final reports with documentation of one or more dose reduction techniques (e.g., Automated exposure control, adjustment of the mA and/or kV according to patient size, use of iterative reconstruction technique) TECHNICAL DOCUMENTATION: JOB ID: [id number]- All Rights Reserved Reading location - IP/workstation name: [email or web address]
== END ==
LOC: RAD 12:35
PROVIDERS: ATTEND Physician Assistant
DX: R06.02 Shortness of breath (principal)
CPT/HCPCS: 71275; 82565

== ENCOUNTER 2018-10-06 20:38 | Observation (INO) | payer MEDICARE ==
[2018-10-06] MEDS ORDERED: NORMAL SALINE 1000 ML 1,000 ML IV ONE ×2 (21:08→22:43)
[2018-10-06] MEDS ORDERED: ONDANSETRON HCL INJ/PF 4 MG/2 ML SDV IV ONE (21:08)
--- NOTE | 2018-10-06 21:10 | ER Document Report ---
ED Medical Screen (RME) - General Chief Complaint: Chest Pain Stated Complaint: CHEST PAIN Time Seen by Provider: 10/06/18 21:01 Primary Care Provider: AMALIA HOUSTON PA-C [Primary Care Provider] - Follow up as needed Mode of Arrival: Wheelchair Information source: Patient Notes: 43-year-old female presented to ED for complaint of chest pain since a.m. She states she woke up this morning with body aches all over nausea and vomiting after she vomited she had severe chest pain. She is moaning in the room. She states she has had multiple episodes of vomiting and diarrhea. She states she fractured her ribs in July and they still hurt. She does have a diagnosis of anxiety depression and bipolar. She states she is a former smoker and does not drink or do any drugs. She states she is on disability for her mental illnesses. I have greeted and performed a rapid initial assessment of this patient. A comprehensive ED assessment and evaluation of the patient, analysis of test results and completion of medical decision making process will be conducted by an additional ED providers. TRAVEL OUTSIDE OF THE [place] IN LAST 30 DAYS: No - Related Data Allergies/Adverse Reactions: levofloxacin Allergy (Severe, Verified 05/28/18 12:16) rash acetaminophen Allergy (Verified 05/25/18 18:37) aspirin [Aspirin] Allergy (Verified 05/25/18 16:05) codeine [Codeine] Allergy (Verified 05/25/18 16:05) hydrocodone Allergy (Verified 05/25/18 17:12) NSAIDS (Non-Steroidal Anti-Inflamma [Nsaids] Allergy (Verified 05/25/18 16:05) Penicillins Allergy (Verified 05/25/18 16:05) Past Medical History - Social History Frequency of alcohol use: None Drug Abuse: None - Past Medical History Cardiac Medical History: Denies: Hx Atrial Fibrillation, Hx Coronary Artery Disease, Hx DVT, Hx Heart Attack, Hx Hypertension, Hx Pulmonary Embolism Pulmonary Medical History: Reports: Hx Bronchitis, Hx Pneumonia Denies: Hx Asthma, Hx COPD Neurological Medical History: Denies: Hx Seizures Endocrine Medical History: Denies: Hx Diabetes Mellitus Type 1, Hx Diabetes Mellitus Type 2, Hx Hyperthyroidism, Hx Hypothyroidism Renal/ Medical History: Denies: Hx Peritoneal Dialysis GI Medical History: Reports: Hx Gastroesophageal Reflux Disease, Hx Irritable Bowel, Hx Colonoscopy, Hx Endoscopy. Denies: Hx Cirrhosis, Hx Hepatitis Musculoskeltal Medical History: Reports Hx Arthritis, Reports Hx Fibromyalgia, Reports Hx Musculoskeletal Deformity Skin Medical History: Reports Hx Eczema, Reports Hx Psoriasis Psychiatric Medical History: Reports: Hx Anxiety, Hx Attention Deficit Hyperactivity Disorder, Hx Bipolar Disorder, Hx Depression Infectious Medical History: Denies: Hx Hepatitis Past Surgical History: Reports: Hx Neurologic Surgery - Plates and 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- 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, Hx Orthopedic Surgery - C1-C2 fusion, compound fracture, Hx Tubal Ligation, Other - 5 colonoscopies, one EGD, bilater al breast biopsies, liver biopsy - Immunizations Immunizations up to date: Yes Physical Exam - Vital signs Vitals: Temp Pulse Resp BP Pulse Ox 98.0 F 99 21 H 107/91 H 99 10/06/18 20:51 10/06/18 20:51 10/06/18 20:51 10/06/18 20:51 10/06/18 20:51 Course - Vital Signs Vital signs: Temp Pulse Resp BP Pulse Ox 98.0 F 99 21 H 108/78 99 10/06/18 20:51 10/06/18 20:51 10/06/18 20:51 10/06/18 21:06 10/06/18 20:51 Doctor's Discharge - Discharge Referrals: AMALIA HOUSTON PA-C [Primary Care Provider] - Follow up as needed
[2018-10-06 21:51] LABS: APPEARANCE,URINE CLOUDY; BILIRUBIN,URINE NEGATIVE (NEGATIVE); COLOR,URINE YELLOW; GLUCOSE, URINE NEGATIVE (NEGATIVE); KETONES,URINE NEGATIVE (NEGATIVE); LEUKOCYTE ESTERASE,URINE TRACE (NEGATIVE); NITRITE,URINE NEGATIVE (NEGATIVE); PROTEIN,URINE 30 mg/dL (NEGATIVE); URINE SPECIFIC GRAVITY 1.032
--- NOTE | 2018-10-06 22:03 | RADIOLOGY REPORT (SQ) ---
XR CHEST 2 VIEWS EXAM DATE: 10/06/2018 9:07 PM CDT HISTORY: Chest pain body aches . COMPARISON: None. FINDINGS: The heart size is within normal limits. No consolidation, pleural effusion, or pneumothorax is seen. The bony thorax is intact. IMPRESSION: No evidence of acute cardiopulmonary disease.
[2018-10-06 22:06] LABS: URINE AMPHETAMINES SCREEN NEGATIVE; URINE BARBITURATES SCREEN NEGATIVE; URINE BENZODIAZEPINES SCREEN NEGATIVE; URINE COCAINE SCREEN NEGATIVE; URINE MARIJUANA (THC) SCREEN UNCONFIRMED POSITIVE; URINE METHADONE SCREEN NEGATIVE; URINE PHENCYCLIDINE SCREEN NEGATIVE
--- NOTE | 2018-10-06 22:07 | ER Document Report ---
ED General - General Chief Complaint: Chest Pain Stated Complaint: CHEST PAIN Time Seen by Provider: 10/06/18 21:01 Primary Care Provider: AMALIA HOUSTON PA-C [Primary Care Provider] - Follow up as needed Mode of Arrival: Wheelchair TRAVEL OUTSIDE OF THE [place] IN LAST 30 DAYS: No - HPI Notes: 43-year-old female presented to ED for complaint of chest pain since a.m. She states she woke up this morning with body aches all over nausea and vomiting after she vomited she had severe chest pain. She is moaning in the room. She states she has had multiple episodes of vomiting and diarrhea. She states she fractured her ribs in July and they still hurt. She does have a diagnosis of anxiety depression and bipolar. She states she is a former smoker and does not drink or do any drugs. She states she is on disability for her mental illnesses. Patient presents with report of nasal congestion yesterday then started with a cough today. She had vomiting x2 this morning without blood and diarrhea x5 this morning without blood. She reports no recent antibiotics she denies any exposures she describes right greater than left flank pain of gradual onset over the course of the day with mild abdominal pain and after vomiting developed some pain to the chest. The patient denies productive cough. She has significant chills on arrival and had a temperature of 101.2 rectally. Patient has a history of previous smoking and bipolar and anxiety and previous sirs with presumed pyelonephritis, although she had negative urine cultures on evaluation 4 months ago during an admission. The patient also had a CTA of the chest on 06/03/2018 that showed no significant cardiac calcifications. Medications Lamictal, trazodone, Klonopin, Adderall. Family history no cardiac disease. On previous admission 4 months ago with Sirs, the patient received IV meropenem with improvement, given her multiple medication allergies. Patient reports 1 month ago she fell in the bathroom and broke a right posterior rib. - Related Data Allergies/Adverse Reactions: levofloxacin Allergy (Severe, Verified 05/28/18 12:16) rash acetaminophen Allergy (Verified 05/25/18 18:37) aspirin [Aspirin] Allergy (Verified 05/25/18 16:05) codeine [Codeine] Allergy (Verified 05/25/18 16:05) hydrocodone Allergy (Verified 05/25/18 17:12) NSAIDS (Non-Steroidal Anti-Inflamma [Nsaids] Allergy (Verified 05/25/18 16:05) Penicillins Allergy (Verified 05/25/18 16:05) Past Medical History - General Information source: Patient - Social History Smoking Status: Former Smoker Frequency of alcohol use: None Drug Abuse: None Lives with: Family Family History: COPD, Hyperlipidemia, Hypertension, Malignancy, Thyroid Disfunction Patient has suicidal ideation: No Patient has homicidal ideation: No - Past Medical History Cardiac Medical History: Denies: Hx Atrial Fibrillation, Hx Coronary Artery Disease, Hx DVT, Hx Heart Attack, Hx Hypertension, Hx Pulmonary Embolism Pulmonary Medical History: Reports: Hx Bronchitis, Hx Pneumonia Denies: Hx Asthma, Hx COPD Neurological Medical History: Denies: Hx Seizures Endocrine Medical History: Denies: Hx Diabetes Mellitus Type 1, Hx Diabetes Mellitus Type 2, Hx Hyperthyroidism, Hx Hypothyroidism Renal/ Medical History: Denies: Hx Peritoneal Dialysis GI Medical History: Reports: Hx Gastroesophageal Reflux Disease, Hx Irritable Bowel, Hx Colonoscopy, Hx Endoscopy. Denies: Hx Cirrhosis, Hx Hepatitis Musculoskeletal Medical History: Reports Hx Arthritis, Reports Hx Fibromyalgia, Reports Hx Musculoskeletal Deformity Skin Medical History: Reports Hx Eczema, Reports Hx Psoriasis Psychiatric Medical History: Reports: Hx Anxiety, Hx Attention Deficit Hyperactivity Disorder, Hx Bipolar Disorder, Hx Depression Infectious Medical History: Denies: Hx Hepatitis Past Surgical History: Reports: Hx Neurologic Surgery - Plates and 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- 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, Hx Orthopedic Surgery - C1-C2 fusion, compound fracture, Hx Tubal Ligation, Other - 5 colonoscopies, one EGD, bilateral breast biopsies, liver biopsy - Immunizations Immunizations up to date: Yes Review of Systems - Review of Systems -: Yes All other systems reviewed and negative Physical Exam - Vital signs Vitals: Temp Pulse Resp BP Pulse Ox 98.0 F 99 21 H 107/91 H 99 10/06/18 20:51 10/06/18 20:51 10/06/18 20:51 10/06/18 20:51 10/06/18 20:51 - Notes Notes: PHYSICAL EXAMINATION: GENERAL: Shaking chills with generalized myalgias and temperature 101.2. HEAD: Atraumatic, normocephalic. EYES: Pupils equal round and reactive to light, extraocular movements intact, conjunctiva are normal. ENT: Nares patent with mild clear coryza. oropharynx clear without exudates. Moist mucous membranes. NECK: Normal range of motion, supple without lymphadenopathy. No meningismus. LUNGS: Breath sounds clear to auscultation bilaterally and equal. No wheezes rales or rhonchi. HEART: Regular rate and rhythm without murmurs ABDOMEN: Soft,nondistended abdomen. No guarding, no rebound. No masses appreciated. Mild tenderness to the midepigastric region and lower chest wall region. No crepitance or bony deformity. Female : deferred Musculoskeletal: Normal range of motion, no pitting or edema. No cyanosis. Dif fuse myalgias noted. Right greater than left CVA tenderness. NEUROLOGICAL: Cranial nerves grossly intact. Normal speech, normal gait. Normal sensory, motor exams PSYCH: Normal mood, normal affect. SKIN: Warm, Dry, normal turgor, no rashes or lesions noted. Course - Re-evaluation Re-evalutation: 10/06/18 22:53 Blood cultures were taken and a urine culture was taken prior to the patient receiving IV meropenem, based upon previous history that the patient had from an admission 4 months ago with multiple allergies. IV normal saline bolus 2 L was ordered on the patient she was given Zofran for nausea and 4 mg of morphine for discomfort. 10/07/18 06:28 Patient was given Tylenol for fever of 101.2. Patient received total of 30 cc/kg of normal saline bolus for possible treatment of sepsis. Orthostatics on the patient showed systolic which dropped into the 80s when she stood up and she felt lightheaded. Given the hypotension and orthostasis and fever with evidence for infection, as well as the patient's prior history Of a similar presentation with fever and sepsis from 4 months ago, decision was made for the patient to be admitted for further evaluation, rehydration and care. CT scan of the chest and abdomen is ordered to further evaluate for rule out of PE given the patient's chest pain, although it may be related to her previous rib fracture, also to assess further for occult pneumonia versus pyelonephritis as an etiology for her discomfort. CT scans showed only R rib fx. Still have concern about the patient's hypotension and orthostasis despite IV fluids, as well as her fever and other parameters that would fit for sepsis. 10/07/18 06:[address] Aguiar who agrees to admission to the hospitalist service day shift given the late hour. Patient will be put in for a telemetry bed. - Vital Signs Vital signs: Temp Pulse Resp BP Pulse Ox 101.2 F H 64 15 101/72 95 10/06/18 22:25 10/07/18 04:29 10/07/18 04:00 10/07/18 04:29 10/07/18 04:00 - Laboratory Result Diagrams: 10/06/18 22:00 10/06/18 22:00 Laboratory results interpreted by me: 10/06/18 10/06/18 10/06/18 21:27 22:00 22:00 Lymph % (Auto) 12.7 L Seg Neutrophils % 79.4 H Sodium 132.6 L Chloride 95 L Urine Protein 30 H Urine Urobilinogen 2.0 H Ur Leukocyte Esterase TRACE H - EKG Interpretation by Me EKG shows normal: Sinus rhythm Additional EKG results interpreted by me: 10/06/18 22:54 EKG is interpreted by me showed normal sinus rhythm heart rate of 79. There are nonspecific ST and T wave abnormalities. No obvious evidence for acute STEMI. Critical Care Note - Critical Care Note Total time excluding time spent on procedures (mins): 46 Discharge - Discharge Clinical Impression: Orthostatic dizziness, Pyelonephritis Condition: Fair Disposition: ADMITTED INPATIENT Admitting Provider: Cosme (Hospitalist) Unit Admitted: Telemetry Referrals: AMALIA HOUSTON PA-C [Primary Care Provider] - Follow up as needed
[2018-10-06 22:15] LABS: ABSOLUTE BASOPHILS # (AUTO) 0.1 10^3/uL (0.0-0.2); ABSOLUTE LYMPHOCYTES (AUTO) 1.1 10^3/uL (0.5-4.7); ABSOLUTE MONOCYTES (AUTO) 0.6 10^3/uL (0.1-1.4); ABSOLUTE NEUT (AUTO) 6.7 10^3/uL (1.7-8.2); BASOPHILS % (AUTO) 0.7 % (0-2); EOSINOPHILS % (AUTO) 0.1 % (0-6); HEMOGLOBIN 15.5 g/dL (12.0-15.5); LYMPHOCYTES % (AUTO) 12.7 % (13-45); MEAN CORPUSCULAR HEMOGLOBIN 30.6 pg (27.0-33.4); MEAN CORPUSCULAR HGB CONC 34.4 g/dL (32.0-36.0); MEAN CORPUSCULAR VOLUME 89 fl (80-97); MONOCYTES % (AUTO) 7.1 % (3-13); PLATELET COUNT 356 10^3/uL (150-450); RED BLOOD COUNT 5.05 10^6/uL (3.72-5.28); RED CELL DISTRIBUTION WIDTH 12.9 % (11.5-14.0); SEGMENTED NEUTROPHILS % (AUTO) 79.4 % (42-78); TOTAL CELLS COUNTED % (AUTO) 100 %; WHITE BLOOD COUNT 8.5 10^3/uL (4.0-10.5)
[2018-10-06 22:29] LABS: ALBUMIN 4.3 g/dL (3.5-5.0); ALKALINE PHOSPHATASE 66 U/L (38-126); ANION GAP 13 (5-19); ASPARTATE AMINO TRANSFERASE 23 U/L (14-36); BILIRUBIN,DIRECT 0.2 mg/dL (0.0-0.4); BILIRUBIN,TOTAL 0.7 mg/dL (0.2-1.3); BLOOD UREA NITROGEN 17 mg/dL (7-20); CALCIUM 8.8 mg/dL (8.4-10.2); CARBON DIOXIDE 25 mmol/L (22-30); CHLORIDE 95 mmol/L (98-107); CREATINE KINASE 49 U/L (30-135); GLUCOSE 102 mg/dL (75-110); POTASSIUM 3.6 mmol/L (3.6-5.0); TOTAL PROTEIN 6.7 g/dL (6.3-8.2)
[2018-10-06 22:42] LABS: CREATINE KINASE MB < 0.22 ng/mL (<4.55); TROPONIN I < 0.012 ng/mL
[2018-10-06] MEDS ORDERED: ACETAMINOPHEN 325 MG TABLET PO ONE (22:42)
[2018-10-06] MEDS ORDERED: MEROPENEM 1 GM VIAL IV ONE (22:44)
[2018-10-06] MEDS ORDERED: MORPHINE SULFATE 10 MG/ML INJ IV ONE (22:51)
[2018-10-07] MEDS ORDERED: ACETAMINOPHEN 325 MG TABLET PO ONE (03:18)
[2018-10-07] MEDS ORDERED: SULFAMETHOXAZOLE/TRIMETHOPRIM 800-160 MG TABLET PO ONE (03:19)
[2018-10-07] MEDS ORDERED: MORPHINE SULFATE 10 MG/ML INJ IV ONE (03:19)
[2018-10-07] MEDS ORDERED: POTASSI CL 20 MEQ/NS 1L 1,000 ML IV ONE (04:34)
--- NOTE | 2018-10-07 06:20 | RADIOLOGY REPORT (SQ) ---
CLINICAL HISTORY: R>L chest pain, dyspnea, hypotension. CREAT 0.71 COMPARISON: None. TECHNIQUE: CT CHEST ANGIOGRAPHY WITHOUT THEN WITH IV CONTRAST, CT ABDOMEN PELVIS WITH IV CONTRAST on 10/07/2018 4:40 AM CDT. MIPS reconstructions were generated. This exam was performed according to our departmental dose-optimization program, which includes automated exposure control, adjustment of the mA and/or kV according to patient size and/or use of iterative reconstruction technique. FINDINGS: Vascular: Thoracic aorta is normal in course and caliber without aneurysm or dissection. Pulmonary arteries are adequately opacified without acute or chronic filling defects. Abdominal aorta is normal in course and caliber without aneurysm. Pelvic arteries are patent without aneurysm or occlusion. Chest: The heart is normal in size. There is no pericardial effusion. Intrathoracic lymph nodes are not enlarged. There is no pleural effusion, pleural thickening or pneumothorax. Central airways are patent. Lungs are clear with no consolidation, mass or interstitial lung disease. Abdomen: Liver is fatty in attenuation. There is no biliary dilatation. Gallbladder is normally distended. The pancreas and spleen are normal in appearance. The adrenal glands and kidneys are unremarkable. There is no free air. There is no retroperitoneal adenopathy. Pelvis: There is no bowel obstruction. Urinary bladder is unremarkable. There is no free fluid. Uterus is normal in size. Appendix is normal. There is a tiny probable fibroid in the anterior fundus. Skeleton: There is a minimally comminuted fracture of the posterior aspect of the right 11th rib. IMPRESSION: No aortic dissection or aneurysm. No pulmonary embolus. Posterior right 11th rib fracture.
--- NOTE | 2018-10-07 07:36 | EKG REPORT ---
SEVERITY:- ABNORMAL ECG - SINUS RHYTHM BORDERLINE RIGHT AXIS DEVIATION NONSPECIFIC T ABNORMALITIES, DIFFUSE LEADS : Confirmed by: Delgado Nava MD 07-Oct-2018 07:35:59
[2018-10-07] MEDS ORDERED: ONDANSETRON HCL INJ/PF 4 MG/2 ML SDV IV PRN (09:11)
[2018-10-07] MEDS: NORMAL SALINE 1000 ML 1,000 ML IV PRN ×2 (09:50→19:56)
[2018-10-07] MEDS: HEPARIN SOD (PORCINE) 5,000 UNIT/ML 1 ML VIAL SUBCUT SCH ×2 (13:01→21:45)
--- NOTE | 2018-10-07 16:21 | PDOC H&P ---
History of Present Illness Admission Date/PCP: 10/07/18 07:17 AMALAI HOUSTON PA-C History of Present Illness: TATI SCHAEFER is a 43 year old female who had been having nausea, vomiti ng, and some diarrhea for the past couple of days. She says she felt fine until the onset of the symptoms. She does not recall eating anything out of the ordinary. Her p.o. intake was decreased. She has not taken any new medications or ingested any substances. She has not taken anything to help control her symptoms. She had a fever in the ER. She was complaining of some posterior right chest pain for the past month ever since she fell while getting out of a bathtub and landing on her lower back. She said she had broken ribs down there and that was confirmed with a posterior 11th rib fracture on CT. The remainder of her imaging in the ER was negative. She has not had any cough or shortness of breath. No dysuria. No abdominal pain. She is being admitted for dehydration and gastroenteritis. Past Medical History Cardiac Medical History: Denies: Atrial Fibrillation, Coronary Artery Disease, DVT, Myocardial Infarction, Hypertension, Pulmonary Embolism Pulmonary Medical History: Reports: Bronchitis, Pneumonia Denies: Asthma, Chronic Obstructive Pulmonary Disease (COPD) Neurological Medical History: Denies: Seizures Endocrine Medical History: Denies: Diabetes Mellitus Type 1, Diabetes Mellitus Type 2, Hyperthyroidism, Hypothyroidism GI Medical History: Reports: Gastroesophageal Reflux Disease Denies: Cirrhosis, Hepatitis Musculoskeltal Medical History: Reports: Arthritis, Fibromyalgia Skin Medical History: Reports: Eczema, Psoriasis Psychiatric Medical History: Reports: Attention Deficit Hyperactivity Disorder, Bipolar Disorder, Depression Hematology: Denies: Anemia, Bleeding Tendencies Past Surgical History Past Surgical History: Reports: Orthopedic Surgery - C1-C2 fusion, compound fracture, Tubal Ligation, Other - 5 colonoscopies, one EGD, bilateral breast biopsies, liver biopsy Social History Lives with: Family Smoking Status: Current Some Day Smoker Frequency of Alcohol Use: None Hx Recreational Drug Use: No Drugs: None Hx Prescription Drug Abuse: No - Advance Directive Resuscitation Status: Full Code Family History Family History: COPD, Hyperlipidemia, Hypertension, Malignancy, Thyroid Disfunction Parental Family History Reviewed: Yes Children Family History Reviewed: Yes Sibling(s) Family History Reviewed.: Yes Medication/Allergy Home Medications: Clonazepam [Klonopin 1 mg Tablet] 1 mg PO BID 10/07/18 Desvenlafaxine [Desvenlafaxine ER] 100 mg PO DAILY 10/07/18 Dextroamphetamine/Amphetamine [Adderall 20 mg Tablet] 20 mg PO BID 10/07/18 Lamotrigine [Lamictal] 50 mg PO BID 10/07/18 Trazodone HCl [Desyrel] 200 mg PO QHS 10/07/18 Allergies/Adverse Reactions: levofloxacin Allergy (Severe, Verified 05/28/18 12:16) rash acetaminophen Allergy (Verified 05/25/18 18:37) aspirin [Aspirin] Allergy (Verified 05/25/18 16:05) codeine [Codeine] Allergy (Verified 05/25/18 16:05) hydrocodone Allergy (Verified 05/25/18 17:12) NSAIDS (Non-Steroidal Anti-Inflamma [Nsaids] Allergy (Verified 05/25/18 16:05) Penicillins Allergy (Verified 05/25/18 16:05) Review of Systems All systems: reviewed and no additional remarkable complaints except as stated - All systems were reviewed and were negative except as noted in the HPI Physical Exam Vital Signs: Temp Pulse Resp BP Pulse Ox 97.6 F 57 L 16 96/52 L 97 10/07/18 09:27 10/07/18 09:27 10/07/18 09:27 10/07/18 09:27 10/07/18 09:27 Intake & Output 10/06/18 10/07/18 10/08/18 06:59 06:59 06:59 Intake Total 1999 1240 Balance 1999 1240 Weight 69.39 kg 70.2 kg General appearance: PRESENT: no acute distress, cooperative, disheveled, other - Appears fatigued Head exam: PRESENT: atraumatic, normocephalic Eye exam: PRESENT: EOMI, PERRLA. ABSENT: conjunctival injection, nystagmus, scleral icterus Ear exam: PRESENT: normal external ear exam Mouth exam: PRESENT: dry mucosa, neck supple Throat exam: ABSENT: post pharyngeal erythema Neck exam: PRESENT: full ROM. ABSENT: carotid bruit, JVD, lymphadenopathy, meningismus, tenderness, thyromegaly Respiratory exam: PRESENT: chest wall tenderness - Right side of her back at the inferior border of her rib cage, clear to auscultation juarez, symmetrical, unlabored. ABSENT: accessory muscle use, crackles, prolonged expiratory phas, rhonchi, tachypnea, wheezes Cardiovascular exam: PRESENT: RRR, +S1, +S2 Pulses: PRESENT: normal carotid pulses Vascular exam: PRESENT: normal capillary refill GI/Abdominal exam: PRESENT: normal bowel sounds, soft. ABSENT: distended, guarding, rebound, tenderness Extremities exam: ABSENT: clubbing, pedal edema Musculoskeletal exam: PRESENT: normal inspection. ABSENT: deformity Neurological exam: PRESENT: alert, awake, oriented to person, oriented to place, oriented to time, oriented to situation, CN II-XII grossly intact. ABSENT: motor sensory deficit Psychiatric exam: PRESENT: appropriate affect, normal mood Skin exam: PRESENT: dry, warm Results Laboratory Results: 10/06/18 22:00 10/06/18 22:00 10/06/18 10/06/18 10/06/18 21:27 22:00 22:00 WBC 8.5 RBC 5.05 Hgb 15.5 Hct 45.0 MCV 89 MCH 30.6 MCHC 34.4 RDW 12.9 Plt Count 356 Seg Neutrophils % 79.4 H Sodium 132.6 L Potassium 3.6 Chloride 95 L Carbon Dioxide 25 Anion Gap 13 BUN 17 Creatinine 0.71 Est GFR ( Amer) > 60 Glucose 102 Lactic Acid Calcium 8.8 Total Bilirubin 0.7 AST 23 Alkaline Phosphatase 66 Total Protein 6.7 Albumin 4.3 Lipase 56.4 Serum HCG, Qual Urine Color YELLOW Urine Appearance CLOUDY Urine pH 6.0 Ur Specific [place] 1.032 Urine Protein 30 H Urine Glucose (UA) NEGATIVE Urine Ketones NEGATIVE Urine Blood NEGATIVE Urine Nitrite NEGATIVE Ur Leukocyte Esterase TRACE H Urine WBC (Auto) 9 Urine RBC (Auto) 1 10/06/18 10/06/18 22:00 23:43 WBC RBC Hgb Hct MCV MCH MCHC RDW Plt Count Seg Neutrophils % Sodium Potassium Chloride Carbon Dioxide Anion Gap BUN Creatinine Est GFR ( Amer) Glucose Lactic Acid 1.1 Calcium Total Bilirubin AST Alkaline Phosphatase Total Protein Albumin Lipase Serum HCG, Qual NEGATIVE Urine Color Urine Appearance Urine pH Ur Specific [place] Urine Protein Urine Glucose (UA) Urine Ketones Urine Blood Urine Nitrite Ur Leukocyte Esterase Urine WBC (Auto) Urine RBC (Auto) 10/06/18 10/06/18 10/07/18 22:00 22:00 02:16 Creatine Kinase 49 CK-MB (CK-2) < 0.22 Troponin I < 0.012 < 0.012 Impressions: Chest X-Ray 10/06/18 21:07 IMPRESSION: No evidence of acute cardiopulmonary disease. Abdomen/Pelvis CT 10/07/18 04:39 IMPRESSION: No aortic dissection or aneurysm. No pulmonary embolus. Posterior right 11th rib fracture. Chest/Abdomen CTA 10/07/18 04:40 IMPRESSION: No aortic dissection or aneurysm. No pulmonary embolus. Posterior right 11th rib fracture. Assessment and Plan - Diagnosis (1) Dehydration Is this a current diagnosis for this admission?: Yes Plan: We will give her some IV fluids. She is gotten several bags of IV fluids in the ER and has started to put out some urine. We will monitor her electrolytes. (2) Gastroenteritis Is this a current diagnosis for this admission?: Yes Plan: Suspected viral etiology. She is gotten some Zofran in the ER and was not feeling as nauseated. Supportive care. (3) SIRS (systemic inflammatory response syndrome) Is this a current diagnosis for this admission?: Yes Plan: Due to to have a fever and tachypnea associated with her gastroenteritis. Supportive measures as noted above. - Time Time Spent with patient: 35 or more minutes
[2018-10-08] MEDS: HEPARIN SOD (PORCINE) 5,000 UNIT/ML 1 ML VIAL SUBCUT SCH ×3 (05:46→22:12)
[2018-10-08] MEDS: NORMAL SALINE 1000 ML 1,000 ML IV PRN ×2 (05:48→14:59)
[2018-10-08 06:42] LABS: HEMATOCRIT 38.7 % (36.0-47.0); MEAN CORPUSCULAR HEMOGLOBIN 30.5 pg (27.0-33.4); MEAN CORPUSCULAR HGB CONC 33.8 g/dL (32.0-36.0); MEAN CORPUSCULAR VOLUME 90 fl (80-97); PLATELET COUNT 267 10^3/uL (150-450); RED CELL DISTRIBUTION WIDTH 12.6 % (11.5-14.0); WHITE BLOOD COUNT 5.9 10^3/uL (4.0-10.5)
[2018-10-08 06:46] LABS: HEMOGLOBIN 13.1 g/dL (12.0-15.5)
[2018-10-08 06:53] LABS: ANION GAP 5 (5-19); BLOOD UREA NITROGEN 8 mg/dL (7-20); CALCIUM 8.2 mg/dL (8.4-10.2); CARBON DIOXIDE 26 mmol/L (22-30); CHLORIDE 105 mmol/L (98-107); GLUCOSE 91 mg/dL (75-110)
[2018-10-08 06:54] LABS: POTASSIUM 4.2 mmol/L (3.6-5.0)
[2018-10-08] MEDS ORDERED: LAMOTRIGINE 100 MG TABLET PO SCH ×2 (14:30→18:00)
--- NOTE | 2018-10-08 17:22 | PDOC PROGRESS REPORT ---
Subjective Progress Note for:: 10/08/18 Subjective:: No adverse events overnight. No new complaints. Vital signs been stable. No fevers. No nausea and diarrhea have stopped. She was eating lunch today. Reason For Visit: SIRS,GASTROENTERITIS,DEHYDRATION Physical Exam Vital Signs: Temp Pulse Resp BP Pulse Ox 98.3 F 60 16 131/85 H 99 10/08/18 15:30 10/08/18 15:30 10/08/18 15:30 10/08/18 15:30 10/08/18 15:30 Intake & Output 10/07/18 10/08/18 10/09/18 06:59 06:59 06:59 Intake Total 1999 3490 1610 Output Total 1 Balance 1999 3489 1610 Weight 69.39 kg 71.1 kg General appearance: PRESENT: no acute distress, cooperative, disheveled Respiratory exam: PRESENT: clear to auscultation juarez, symmetrical, unlabored. ABSENT: accessory muscle use, chest wall tenderness, crackles, prolonged expiratory phas, rhonchi, tachypnea, wheezes Cardiovascular exam: PRESENT: RRR, +S1, +S2 Pulses: PRESENT: normal carotid pulses Vascular exam: PRESENT: normal capillary refill GI/Abdominal exam: PRESENT: normal bowel sounds, soft. ABSENT: distended, guarding, rebound, tenderness Extremities exam: ABSENT: clubbing, pedal edema Musculoskeletal exam: PRESENT: normal inspection. ABSENT: deformity Neurological exam: PRESENT: alert, awake, oriented to person, oriented to place, oriented to situation Psychiatric exam: PRESENT: appropriate affect, normal mood Skin exam: PRESENT: dry, warm Results Laboratory Results: 10/08/18 05:54 10/08/18 05:54 10/08/18 10/08/18 05:54 05:54 WBC 5.9 RBC 4.30 Hgb 13.1 D Hct 38.7 MCV 90 MCH 30.5 MCHC 33.8 RDW 12.6 Plt Count 267 Sodium 136.4 L Potassium 4.2 Chloride 105 Carbon Dioxide 26 Anion Gap 5 BUN 8 Creatinine 0.57 Est GFR ( Amer) > 60 Glucose 91 Calcium 8.2 L 10/06/18 21:27 Clean Catch Midstream Urine Culture - Final Mixed Urogenital Thi 10/06/18 10/06/18 10/07/18 22:00 22:00 02:16 Creatine Kinase 49 CK-MB (CK-2) < 0.22 Troponin I < 0.012 < 0.012 Impressions: Chest X-Ray 10/06/18 21:07 IMPRESSION: No evidence of acute cardiopulmonary disease. Abdomen/Pelvis CT 10/07/18 04:39 IMPRESSION: No aortic dissection or aneurysm. No pulmonary embolus. Posterior right 11th rib fracture. Chest/Abdomen CTA 10/07/18 04:40 IMPRESSION: No aortic dissection or aneurysm. No pulmonary embolus. Posterior right 11th rib fracture. Assessment and Plan - Diagnosis (1) Dehydration Is this a current diagnosis for this admission?: Yes Plan: Resolved (2) Gastroenteritis Is this a current diagnosis for this admission?: Yes Plan: Resolved (3) SIRS (systemic inflammatory response syndrome) Is this a current diagnosis for this admission?: Yes Plan: Now resolved. However, she is had 2 blood cultures turn positive. We are for gram positives. I am starting vancomycin empirically. We will follow-up culture results. We will also try to identify source. - Time Time Spent with patient: 15-24 minutes
[2018-10-08] MEDS ORDERED: VANCOMYCIN HCL 0 MG in DEXTROSE 5%-WATER 250 ML IV NR (17:30)
[2018-10-08] MEDS: CLONAZEPAM 1 MG TABLET PO SCH (17:35)
[2018-10-08] MEDS ORDERED: (PENDING PHARMACY ID) (Lamotrigine [Lamictal] 50 MG) PO SCH (18:00)
[2018-10-08] MEDS: VANCOMYCIN HCL 1,000 MG in DEXTROSE 5%-WATER 250 ML IV SCH (21:59)
[2018-10-08] MEDS: TRAZODONE HCL 50 MG TABLET PO SCH (21:59)
[2018-10-08] MEDS ORDERED: (PENDING PHARMACY ID) (Trazodone Hcl [Desyrel] 200 MG) PO SCH (22:00)
[2018-10-08] MEDS: LAMOTRIGINE 25 MG TAB.CHEW PO SCH (22:00)
[2018-10-09] MEDS: HEPARIN SOD (PORCINE) 5,000 UNIT/ML 1 ML VIAL SUBCUT SCH ×3 (05:32→22:12)
[2018-10-09] MEDS: NORMAL SALINE 1000 ML 1,000 ML IV PRN (05:34)
[2018-10-09] MEDS: VANCOMYCIN HCL 1,000 MG in DEXTROSE 5%-WATER 250 ML IV SCH ×3 (05:34→21:54)
[2018-10-09 05:43] LABS: HEMOGLOBIN 12.3 g/dL (12.0-15.5); MEAN CORPUSCULAR HEMOGLOBIN 30.4 pg (27.0-33.4); MEAN CORPUSCULAR HGB CONC 34.3 g/dL (32.0-36.0); MEAN CORPUSCULAR VOLUME 89 fl (80-97); PLATELET COUNT 257 10^3/uL (150-450); RED BLOOD COUNT 4.06 10^6/uL (3.72-5.28); RED CELL DISTRIBUTION WIDTH 12.8 % (11.5-14.0); WHITE BLOOD COUNT 5.5 10^3/uL (4.0-10.5)
[2018-10-09 05:59] LABS: ANION GAP 6 (5-19); BLOOD UREA NITROGEN 8 mg/dL (7-20); CALCIUM 8.4 mg/dL (8.4-10.2); CARBON DIOXIDE 27 mmol/L (22-30); CHLORIDE 105 mmol/L (98-107); GLUCOSE 89 mg/dL (75-110); POTASSIUM 4.1 mmol/L (3.6-5.0)
[2018-10-09] MEDS: CLONAZEPAM 1 MG TABLET PO SCH ×2 (09:13→18:29)
[2018-10-09] MEDS: LAMOTRIGINE 25 MG TAB.CHEW PO SCH ×2 (09:21→21:56)
--- NOTE | 2018-10-09 16:00 | PDOC PROGRESS REPORT ---
Subjective Progress Note for:: 10/09/18 Subjective:: No adverse events overnight. No new complaints. Vital signs been stable. Eating and drinking without difficulty. She says overall she feels pretty good. Reason For Visit: SIRS,GASTROENTERITIS,DEHYDRATION Physical Exam Vital Signs: Temp Pulse Resp BP Pulse Ox 98.2 F 63 16 134/96 H 100 10/09/18 12:14 10/09/18 12:14 10/09/18 12:14 10/09/18 12:14 10/09/18 12:14 Intake & Output 10/08/18 10/09/18 10/10/18 06:59 06:59 06:59 Intake Total 3490 3966 722 Output Total 1 Balance 3489 3966 722 Weight 71.1 kg 70.2 kg General appearance: PRESENT: no acute distress, cooperative, disheveled Respiratory exam: PRESENT: clear to auscultation juarez, symmetrical, unlabored. ABSENT: accessory muscle use, chest wall tenderness, crackles, prolonged expiratory phas, rhonchi, tachypnea, wheezes Cardiovascular exam: PRESENT: RRR, +S1, +S2 Pulses: PRESENT: normal carotid pulses Vascular exam: PRESENT: normal capillary refill GI/Abdominal exam: PRESENT: normal bowel sounds, soft. ABSENT: distended, guarding, rebound, tenderness Extremities exam: ABSENT: clubbing, pedal edema Musculoskeletal exam: PRESENT: normal inspection. ABSENT: deformity Neurological exam: PRESENT: alert, awake, oriented to person, oriented to place, oriented to situation Psychiatric exam: PRESENT: appropriate affect, normal mood Skin exam: PRESENT: dry, warm Results Laboratory Results: 10/09/18 05:15 10/09/18 05:15 10/09/18 10/09/18 05:15 05:15 WBC 5.5 RBC 4.06 Hgb 12.3 Hct 36.0 MCV 89 MCH 30.4 MCHC 34.3 RDW 12.8 Plt Count 257 Sodium 137.9 Potassium 4.1 Chloride 105 Carbon Dioxide 27 Anion Gap 6 BUN 8 Creatinine 0.54 Est GFR ( Amer) > 60 Glucose 89 Calcium 8.4 10/06/18 21:27 Clean Catch Midstream Urine Culture - Final Mixed Urogenital Thi 10/06/18 10/06/18 10/07/18 22:00 22:00 02:16 Creatine Kinase 49 CK-MB (CK-2) < 0.22 Troponin I < 0.012 < 0.012 Impressions: Chest X-Ray 10/06/18 21:07 IMPRESSION: No evidence of acute cardiopulmonary disease. Abdomen/Pelvis CT 10/07/18 04:39 IMPRESSION: No aortic dissection or aneurysm. No pulmonary embolus. Posterior right 11th rib fracture. Chest/Abdomen CTA 10/07/18 04:40 IMPRESSION: No aortic dissection or aneurysm. No pulmonary embolus. Posterior right 11th rib fracture. Assessment and Plan - Diagnosis (1) Dehydration Is this a current diagnosis for this admission?: Yes Plan: Resolved (2) Gastroenteritis Is this a current diagnosis for this admission?: Yes Plan: Resolved (3) SIRS (systemic inflammatory response syndrome) Is this a current diagnosis for this admission?: Yes Plan: Now resolved. However, she is had 2 blood cultures turn positive. We are for gram positives. I am starting vancomycin empirically. We will follow-up culture results. We will also try to identify source. (4) Gram-positive bacteremia Is this a current diagnosis for this admission?: Yes Plan: No idea whatsoever from her history, her exam, or her extensive imaging work-up or lab work-up to indicate a bacterial infection, but she is got 2 different blood cultures positive. As noted above, if it turns out to be a pathogen associated typically with infection, she may need a NICKIE and further evaluation. She denies any IV drug use. - Time Time Spent with patient: 15-24 minutes
[2018-10-09] MEDS: TRAZODONE HCL 50 MG TABLET PO SCH (21:56)
[2018-10-10 05:45] LABS: HEMATOCRIT 37.3 % (36.0-47.0); HEMOGLOBIN 12.7 g/dL (12.0-15.5); MEAN CORPUSCULAR HEMOGLOBIN 30.4 pg (27.0-33.4); MEAN CORPUSCULAR HGB CONC 34.1 g/dL (32.0-36.0); MEAN CORPUSCULAR VOLUME 89 fl (80-97); PLATELET COUNT 277 10^3/uL (150-450); RED BLOOD COUNT 4.19 10^6/uL (3.72-5.28); RED CELL DISTRIBUTION WIDTH 12.6 % (11.5-14.0); WHITE BLOOD COUNT 6.5 10^3/uL (4.0-10.5)
[2018-10-10] MEDS: VANCOMYCIN HCL 1,000 MG in DEXTROSE 5%-WATER 250 ML IV SCH ×3 (05:50→21:54)
[2018-10-10] MEDS: HEPARIN SOD (PORCINE) 5,000 UNIT/ML 1 ML VIAL SUBCUT SCH ×3 (05:51→21:49)
[2018-10-10 05:56] LABS: ANION GAP 10 (5-19); BLOOD UREA NITROGEN 12 mg/dL (7-20); CALCIUM 8.8 mg/dL (8.4-10.2); CARBON DIOXIDE 28 mmol/L (22-30); CHLORIDE 100 mmol/L (98-107); GLUCOSE 94 mg/dL (75-110); POTASSIUM 3.9 mmol/L (3.6-5.0)
[2018-10-10 06:01] LABS: VANCOMYCIN,TROUGH 15.1 ug/mL (5.0-20.0)
[2018-10-10] MEDS: LAMOTRIGINE 25 MG TAB.CHEW PO SCH ×2 (09:07→21:52)
[2018-10-10] MEDS: CLONAZEPAM 1 MG TABLET PO SCH ×2 (09:07→17:06)
--- NOTE | 2018-10-10 13:59 | PDOC PROGRESS REPORT ---
Subjective Progress Note for:: 10/10/18 Subjective:: No adverse events overnight. No new complaints. Vital signs been stable. Eating and drinking without difficulty. No nausea, vomiting, or diarrhea. No chest pain or shortness of breath. No dysuria. No sore throat or cough. No skin wounds. Reason For Visit: SIRS,GASTROENTERITIS,DEHYDRATION Physical Exam Vital Signs: Temp Pulse Resp BP Pulse Ox 97.7 F 60 16 104/64 98 10/09/18 23:47 10/09/18 23:47 10/09/18 23:47 10/09/18 23:47 10/09/18 23:47 Intake & Output 10/09/18 10/10/18 10/11/18 06:59 06:59 06:59 Intake Total 3966 3042 250 Balance 3966 3042 250 Weight 70.2 kg 70.6 kg General appearance: PRESENT: no acute distress, cooperative, disheveled Respiratory exam: PRESENT: clear to auscultation juarez, symmetrical, unlabored. ABSENT: accessory muscle use, chest wall tenderness, crackles, prolonged expiratory phas, rhonchi, tachypnea, wheezes Cardiovascular exam: PRESENT: RRR, +S1, +S2 Pulses: PRESENT: normal carotid pulses Vascular exam: PRESENT: normal capillary refill GI/Abdominal exam: PRESENT: normal bowel sounds, soft. ABSENT: distended, guarding, rebound, tenderness Extremities exam: ABSENT: clubbing, pedal edema Musculoskeletal exam: PRESENT: normal inspection. ABSENT: deformity Neurological exam: PRESENT: alert, awake, oriented to person, oriented to place, oriented to situation Psychiatric exam: PRESENT: appropriate affect, normal mood Skin exam: PRESENT: dry, warm Results Laboratory Results: 10/10/18 05:28 10/10/18 05:28 10/10/18 10/10/18 05:28 05:28 WBC 6.5 RBC 4.19 Hgb 12.7 Hct 37.3 MCV 89 MCH 30.4 MCHC 34.1 RDW 12.6 Plt Count 277 Sodium 137.7 Potassium 3.9 Chloride 100 Carbon Dioxide 28 Anion Gap 10 BUN 12 Creatinine 0.62 Est GFR ( Amer) > 60 Glucose 94 Calcium 8.8 10/06/18 10/06/18 10/07/18 22:00 22:00 02:16 Creatine Kinase 49 CK-MB (CK-2) < 0.22 Troponin I < 0.012 < 0.012 Impressions: Chest X-Ray 10/06/18 21:07 IMPRESSION: No evidence of acute cardiopulmonary disease. Abdomen/Pelvis CT 10/07/18 04:39 IMPRESSION: No aortic dissection or aneurysm. No pulmonary embolus. Posterior right 11th rib fracture. Chest/Abdomen CTA 10/07/18 04:40 IMPRESSION: No aortic dissection or aneurysm. No pulmonary embolus. Posterior right 11th rib fracture. Assessment and Plan - Diagnosis (1) Dehydration Is this a current diagnosis for this admission?: Yes Plan: Resolved (2) Gastroenteritis Is this a current diagnosis for this admission?: Yes Plan: Resolved (3) SIRS (systemic inflammatory response syndrome) Is this a current diagnosis for this admission?: Yes Plan: Now resolved. However, she is had 2 blood cultures turn positive. No clue as to a source. Awaiting definitive identification. (4) Gram-positive bacteremia Is this a current diagnosis for this admission?: Yes Plan: No idea whatsoever from her history, her exam, or her extensive imaging work-up or lab work-up to indicate a bacterial infection, but she is got 2 different blood cultures positive. As noted above, if it turns out to be a pathogen assoc iated typically with infection, she may need a NICKIE and further evaluation. She denies any IV drug use. - Time Time Spent with patient: 15-24 minutes
[2018-10-10] MEDS: TRAZODONE HCL 50 MG TABLET PO SCH (21:58)
[2018-10-11] MEDS: HEPARIN SOD (PORCINE) 5,000 UNIT/ML 1 ML VIAL SUBCUT SCH (05:52)
[2018-10-11] MEDS: VANCOMYCIN HCL 1,000 MG in DEXTROSE 5%-WATER 250 ML IV SCH (05:54)
[2018-10-11 08:33] VITALS: BP 94/52
[2018-10-11] MEDS: CLONAZEPAM 1 MG TABLET PO SCH (09:05)
[2018-10-11] MEDS: LAMOTRIGINE 25 MG TAB.CHEW PO SCH (09:05)
--- NOTE | 2018-10-11 16:04 | PDOC DISCHARGE SUMMARY ---
General - Admit/Disc Date/PCP Admission Date/Primary Care Provider: 10/07/18 07:17 AMALIA HOUSTON PA-C Discharge Date: 10/11/18 - Discharge Diagnosis (1) Dehydration Is this a current diagnosis for this admission?: Yes Summary: Resolved quickly with IV fluids (2) Gastroenteritis Is this a current diagnosis for this admission?: Yes Summary: Resolved quickly with supportive care (3) SIRS (systemic inflammatory response syndrome) Is this a current diagnosis for this admission?: Yes Summary: Resolved with IV fluids and supportive care (4) Gram-positive bacteremia Is this a current diagnosis for this admission?: Yes Summary: This turned out to be contaminants - Additional Information Resuscitation Status: Full Code Discharge Diet: As Tolerated Discharge Activity: Activity As Tolerated, Balance Activity w/Rest Home Medications: Clonazepam [Klonopin 1 mg Tablet] 1 mg PO BID 10/07/18 Desvenlafaxine [Desvenlafaxine ER] 100 mg PO DAILY 10/07/18 Dextroamphetamine/Amphetamine [Adderall 20 mg Tablet] 20 mg PO BID 10/07/18 Lamotrigine [Lamictal] 25 mg PO BID 10/07/18 Trazodone HCl [Desyrel] 200 mg PO QHS 10/07/18 History of Present Illness History of Present Illness: TATI SCHAEFER is a 43 year old female who had been having nausea, vomiting, and some diarrhea for the past couple of days. She says she felt fine until the onset of the symptoms. She does not recall eating anything out of the ordinary. Her p.o. intake was decreased. She has not taken any new medications or ingested any substances. She has not taken anything to help control her symptoms. She had a fever in the ER. She was complaining of some posterior right chest pain for the past month ever since she fell while getting out of a bathtub and landing on her lower back. She said she had broken ribs down there and that was confirmed with a posterior 11th rib fracture on CT. The remainder of her imaging in the ER was negative. She has not had any cough or shortness of breath. No dysuria. No abdominal pain. She is being admitted for dehydration and gastroenteritis. Hospital Course Hospital Course: Her dehydration and gastroenteritis resolved quickly with supportive care. 1 of her blood cultures surprisingly turn positive, and then the next day the other one turn positive. We put her empirically on IV antibiotics until he could be determined with the organisms were. Both of them turned out to be different strains of coagulase-negative Staphylococcus. These were labeled as contaminants, and I believe this to be the case as she did not display any signs whatsoever consistent with bacterial infection. I told her if she developed fevers, chills, or any other unexplained symptoms to come back and let us evaluate her. She verbalized her understanding. Her labs and examination were reassuring she was discharged in good condition. Physical Exam Vital Signs: Temp Pulse Resp BP Pulse Ox 97.4 F 62 16 94/52 L 96 10/11/18 11:17 10/11/18 11:17 10/11/18 11:17 10/11/18 11:17 10/11/18 11:17 Intake & Output 10/10/18 10/11/18 10/12/18 06:59 06:59 06:59 Intake Total 3042 1070 250 Balance 3042 1070 250 Weight 70.6 kg 71.2 kg General appearance: PRESENT: no acute distress, cooperative, disheveled Respiratory exam: PRESENT: clear to auscultation juarez, symmetrical, unlabored. ABSENT: accessory muscle use, chest wall tenderness, crackles, prolonged expiratory phas, rhonchi, tachypnea, wheezes Cardiovascular exam: PRESENT: RRR, +S1, +S2 Pulses: PRESENT: normal carotid pulses Vascular exam: PRESENT: normal capillary refill GI/Abdominal exam: PRESENT: normal bowel sounds, soft. ABSENT: distended, guarding, rebound, tenderness Extremities exam: ABSENT: clubbing, pedal edema Musculoskeletal exam: PRESENT: normal inspection. ABSENT: deformity Neurological exam: PRESENT: alert, awake, oriented to person, oriented to place, oriented to situation Psychiatric exam: PRESENT: appropriate affect, normal mood Skin exam: PRESENT: dry, warm Results Laboratory Results: 10/10/18 05:28 10/10/18 05:28 10/07/18 06:30 Blood Blood Culture - Final Staphylococcus Hominis 10/06/18 23:43 Blood Blood Culture - Final Staphylococcus Epidermidis 10/06/18 10/06/18 10/07/18 22:00 22:00 02:16 Creatine Kinase 49 CK-MB (CK-2) < 0.22 Troponin I < 0.012 < 0.012 Impressions: Chest X-Ray 10/06/18 21:07 IMPRESSION: No evidence of acute cardiopulmonary disease. Abdomen/Pelvis CT 10/07/18 04:39 IMPRESSION: No aortic dissection or aneurysm. No pulmonary embolus. Posterior right 11th rib fracture. Chest/Abdomen CTA 10/07/18 04:40 IMPRESSION: No aortic dissection or aneurysm. No pulmonary embolus. Posterior right 11th rib fracture. Qualifiers - * PATIENT BEING DISCHARGED WITH ANY OF THE FOLLOWING DIAGNOSIS: No Acute Heart Failure - Is this a Heart Failure Patient?: No Plan Time Spent: Greater than 30 Minutes
== END 2018-10-11 11:57 | disposition home or self-care (01) ==
LOC: ER 20:38 → EH 10-07 07:17 → INTOOBSV 10-07 07:17 → 4S 10-07 09:15
PROVIDERS: ADMIT Internal Medicine; ATTEND Internal Medicine
DX: E86.0 Dehydration (principal); K52.9 Noninfective gastroenteritis and colitis, unspecified; R65.10 Systemic inflammatory response syndrome (SIRS) of non-infectious origin without acute organ dysfunction; R78.81 Bacteremia; B95.7 Other staphylococcus as the cause of diseases classified elsewhere; S22.31XA Fracture of one rib, right side, initial encounter for closed fracture; W19.XXXA Unspecified fall, initial encounter; Y92.002 Bathroom of unspecified non-institutional (private) residence as the place of occurrence of the external cause; R05 Cough; R09.81 Nasal congestion; F31.9 Bipolar disorder, unspecified; F90.9 Attention-deficit hyperactivity disorder, unspecified type; R07.89 Other chest pain; F41.9 Anxiety disorder, unspecified; F17.200 Nicotine dependence, unspecified, uncomplicated; Z79.899 Other long term (current) drug therapy; Z98.51 Tubal ligation status; Z88.6 Allergy status to analgesic agent; Z88.3 Allergy status to other anti-infective agents; Z88.8 Allergy status to other drugs, medicaments and biological substances
CPT/HCPCS: 93005; 96376; 99291; 96361; 96375; 96365; 96366; 96367; 36415 ×5; 87040 ×3; 87086; 82553; 82550; 83690; 84703; 85025; 85027 ×3; 87077; 80048 ×3; 80053; 81001; 84484 ×2; 87186; 80307; 80202; 83605; 71046; 71275; 74177; 93010; G0378 ×5; A9270 ×14; J2270 ×2; J2405 ×2; J7060 ×4; J7030 ×4; J3480; J3370 ×4; J2185; J3490